=== PATIENT | female | born 1960 | race Caucasian/White ===

== ENCOUNTER 2019-11-18 10:28 | Outpatient (CLI) | payer MEDICARE, SELFPAY ==
[2019-11-18 10:39] LABS: Basophils Absolute Auto 0.09 K/mm3 (0.00-0.10); Basophils Percent Auto 1.2 % (0.0-1.0); Eosinophils Percent Auto 1.3 % (1.0-6.0); Hematocrit 49.9 % (35.0-49.0); Hemoglobin 16.9 g/dL (12.0-15.0); Immature Granulocyte Absolute 0.01 K/mm3 (0.00-0.00); Immature Granulocyte Percent A 0.1 % (0.0-0.0); Lymphocytes Percent Auto 21.4 % (18.0-42.0); Mean Corpuscular HGB Conc 33.9 g/dL (32.0-36.0); Mean Corpuscular Hemoglobin 33.1 pg (27.0-31.0); Mean Corpuscular Volume 97.7 fL (78.0-102.0); Mean Platelet Volume 9.6 fl (9.2-11.8); Monocytes Absolute Auto 0.52 K/mm3 (0.10-0.90); Neutrophils Absolute Auto 5.2 K/mm3 (1.7-7.2); Platelet Count Result 202 K/mm3 (150-420); Red Blood Count 5.11 M/mm3 (4.20-5.40); Red Cell Distribution Width 13.1 % (11.6-14.4); White Blood Count 7.5 K/mm3 (4.8-10.8)
[2019-11-18 10:42] LABS: Appearance Urine Clear (Clear); Bilirubin Urine Negative (Negative); Color Urine Yellow (Yellow); Glucose Urine UA Negative (Negative); Ketones Urine Negative (Negative); Leukocyte Esterase Ur Negative LEU/UL (Negative); Nitrate Urine Negative (Negative); Protein Urine Negative (Negative); Urobilinogen Urine 0.2 mg/dL (0.2-1.0); pH Urine 6.5 (5.0-8.0)
[2019-11-18 10:46] LABS: Add Urine Microscopic? YES; Blood Urine Trace-Intact (Negative); RBC Urine 0-2 /hpf (0-2); Squamous Epithelial Cell Urine Rare /hpf (Few); WBC Urine 0-3 /hpf (0-3)
[2019-11-18 10:47] LABS: Bacteria Urine None seen /hpf
[2019-11-18 11:32] LABS: Alanine Aminotransferase 29 U/L (14-59); Albumin Level 4.3 g/dL (3.4-5.0); Alkaline Phosphatase 41 U/L (46-116); Anion Gap 12.9 mmol/L (7-16); Aspartate Amino Transferase 19 U/L (15-37); Bilirubin,Total 0.4 mg/dL (0.00-1.00); Blood Urea Nitrogen 13 mg/dL (7-18); Calcium 9.3 mg/dL (8.5-10.1); Carbon Dioxide 32 mmol/L (21-32); Chloride 100 mmol/L (98-108); Cholesterol 241 mg/dL (0-200); Estimated Glomerular Filt Rate > 60; Glucose 84 mg/dL (70-99); HDL Direct 74 mg/dL (40-60); LDL Cholesterol Calculated 156 mg/dL (<130); Osmolality Calculated 289 mOsm/kg (285-295); Potassium 4.9 mmol/L (3.5-5.1); Sodium 140 mmol/L (136-145); Total Protein 7.6 g/dL (6.4-8.2); Triglycerides 55 mg/dL (0-150)
== END 2019-11-18 10:29 | disposition home or self-care (01) ==
PROVIDERS: PCP Internal Medicine; Visit Provider Internal Medicine
DX: E06.3 Autoimmune thyroiditis (principal); E78.5 Hyperlipidemia, unspecified; J44.9 Chronic obstructive pulmonary disease, unspecified; M85.80 Other specified disorders of bone density and structure, unspecified site
CPT/HCPCS: 36415; 80053; 80061; 81001; 84443; 85025

== ENCOUNTER 2020-02-18 09:40 | Outpatient (CLI) | payer MEDICARE, SELFPAY ==
--- NOTE | ~2020-02-18 | XR_ITS ---
XR chest 2V DATE: 02/18/2020 10:09 INDICATION: Shortness of breath. COPD. TECHNIQUE: 2 views COMPARISON: 03/04/2014 PA and lateral chest FINDINGS: The lungs are prominently hyperinflated with flattening of the diaphragm and increased retr osternal airspace, consistent with clinical history of COPD. The central pulmonary arteries are very prominent with rapid tapering, consistent with pulmonary hypertension. No pulmonary infiltrate or consolidation, pleural effusion or pulmonary vascular congestion or pneumo thorax is evident. Normal heart size. Mild aortic calcification. IMPRESSION: Prominent COPD Reviewed, dictated and finalized at location A. IMPRESSION: Prominent COPD
--- NOTE | ~2020-02-18 | CT_ITS ---
EXAMINATION: CTA chest PE protocol DATE: 02/18/2020 12:05 INDICATION: Shortness of breath, cough and elevated d-dimer. TECHNIQUE: Computed tomography (CT) pulmonary angiogram of the chest was performed with 100 mL Omnipa que-350 intravenous contrast. Additional 3D reconstructions utilizing coronal maximum intensity proje ction (MIP) were performed. Automated exposure control and iterative reconstruction technique were em ployed. The dose-length product was 146.04 mGy-cm. COMPARISON: None FINDINGS: Excellent contrast opacification of the pulmonary arteries. There is mild streak artifact from dense contrast in the superior vena cava and right atrium. No significant motion artifact yielding diagnost ic quality study which demonstrates no pulmonary embolism. Multiple small scattered centrilobular nod ules and mild tree-in-bud pattern in the anterobasilar right lower lobe consistent with endobronchial spread of disease most likely pneumonia. Mild lingular discoid atelectasis in the lingula and right middle lobe. No pleural effusion or pneumothorax. Heart size is normal. Thoracic aorta is normal in c aliber with no dissection. No pathologically enlarged thoracic lymphadenopathy. Visualized upper abdo men is unremarkable. Mild thoracic spondylosis. Chronic mild anterior wedging at T11 and T12. IMPRESSION: 1. No pulmonary embolism. 2. Right lower lobe pneumonia. Reviewed, dictated and finalized at location A.
[2020-02-18 09:56] LABS: HCO3 ABG 30.5 mmol/L (23-29); Oxygen Content ABG 18.8 %vol (16.0-22.0); Oxygen Saturation ABG 93.6 % (95-97); Oxyhemoglobin 86.5 % (94-100); PCO2 ABG 47.8 mmHg (35-45); PO2 ABG 62.7 mmHg (80-90); Total Hemoglobin 15.5 g/dL; pH ABG 7.42 (7.35-7.45)
[2020-02-18 09:58] LABS: Device ROOM AIR; Modified Allen's Test Pass; Site Drawn LEFT RADIAL
[2020-02-18 09:59] LABS: Basophils Absolute Auto 0.06 K/mm3 (0.00-0.10); Basophils Percent Auto 0.6 % (0.0-1.0); Eosinophils Absolute Auto 0.14 K/mm3 (0.02-0.50); Eosinophils Percent Auto 1.4 % (1.0-6.0); Hematocrit 47.8 % (35.0-49.0); Hemoglobin 15.5 g/dL (12.0-15.0); Immature Granulocyte Absolute 0.04 K/mm3 (0.00-0.00); Immature Granulocyte Percent A 0.4 % (0.0-0.0); Lymphocytes Absolute Auto 2.55 K/mm3 (1.10-4.50); Lymphocytes Percent Auto 25.7 % (18.0-42.0); Mean Corpuscular HGB Conc 32.4 g/dL (32.0-36.0); Mean Corpuscular Hemoglobin 32.6 pg (27.0-31.0); Mean Corpuscular Volume 100.4 fL (78.0-102.0); Mean Platelet Volume 9.2 fl (9.2-11.8); Monocytes Absolute Auto 0.86 K/mm3 (0.10-0.90); Monocytes Percent Auto 8.7 % (2.0-11.0); Neutrophils Absolute Auto 6.3 K/mm3 (1.7-7.2); Neutrophils Percent Auto 63.2 % (50.0-70.0); Platelet Count Result 324 K/mm3 (150-420); Red Blood Count 4.76 M/mm3 (4.20-5.40); Red Cell Distribution Width 13.2 % (11.6-14.4); White Blood Count 9.9 K/mm3 (4.8-10.8)
[2020-02-18 10:20] LABS: Alanine Aminotransferase 26 U/L (14-59); Albumin Level 3.5 g/dL (3.4-5.0); Alkaline Phosphatase 42 U/L (46-116); Anion Gap 8.9 mmol/L (7-16); Aspartate Amino Transferase 15 U/L (15-37); Bilirubin,Total 0.1 mg/dL (0.00-1.00); Blood Urea Nitrogen 13 mg/dL (7-18); Calcium 8.5 mg/dL (8.5-10.1); Carbon Dioxide 35 mmol/L (21-32); Chloride 99 mmol/L (98-108); Estimated Glomerular Filt Rate > 60; Glucose 80 mg/dL (70-99); Osmolality Calculated 287 mOsm/kg (285-295); Potassium 3.9 mmol/L (3.5-5.1); Sodium 139 mmol/L (136-145); Total Protein 6.9 g/dL (6.4-8.2)
[2020-02-18 10:23] LABS: D Dimer 3.07 mg/L (0.19-0.50)
[2020-02-18 10:24] LABS: BNP 44.1 pg/mL (0-100)
== END 2020-02-18 09:41 | disposition home or self-care (01) ==
PROVIDERS: PCP Internal Medicine; Visit Provider Internal Medicine
DX: R06.02 Shortness of breath (principal); R79.1 Abnormal coagulation profile
CPT/HCPCS: 36415; 36600; 71046; 71275; 80053; 82805; 83880; 85025; 85380; Q9965

== ENCOUNTER 2020-05-10 08:28 | Outpatient (CLI) | payer MEDICARE, SELFPAY ==
[2020-05-10 08:43] LABS: Base Excess ABG 1.8 mmol/L (0-2); HCO3 ABG 27.3 mmol/L (23-29); Oxygen Content ABG 19.3 %vol (16.0-22.0); Oxyhemoglobin 85.7 % (94-100); PO2 ABG 64.1 mmHg (80-90); pH ABG 7.39 (7.35-7.45)
[2020-05-10 08:45] VITALS: PULSE 61; O2SAT 94
[2020-05-10 08:45] LABS: Device ROOM AIR; Modified Allen's Test Pass; Site Drawn RIGHT RADIAL
--- NOTE | 2020-05-10 09:02 | HOMEO2EVAL ---
Home Oxygen Evaluation RC: Home Oxygen (O2) Evaluation Start: 05/10/20 08:55 Freq: Status: Active Protocol: RPE Activity Type Activity Date Activity User E-Sign Co-Sign Detail Recorded Client Recorded Date Recorded By Document 05/10/20 08:45 HIPOLITO [id number] 05/10/20 09:02 HIPOLITO 05/10/20 08:45 Home O2 Evaluation Test Phase Resting Oxygen Delivery Room Air Pulse Oximetry (90-100 %) 94 Pulse Rate (60-100 beats/min) 61 Activity Tolerance Good Rating of Perceived Dyspnea (PD) +2 Mild, Some Difficulty, Noticeable to the Observer Rate of Perceived Exertion (PE) 13 Somewhat Hard Ambulation Distance (feet) 950 Home Oxygen Evaluation Comments Pt walked approx 950 ft without assist on room air. Sp02s remained between 92-98%. Hr was between 61-94. Sanju walk fairly well but stated was tired the last minute and did have labored breathing with some light grunting respirations. Treatment Charges O2 Evaluation
--- NOTE | 2020-05-10 12:58 | WPDPFTINT ---
PFT Interpretation PFT Interpretation: DOS: 05/10/2020 REQUESTING: Dr. Soto REASON FOR TESTING: COPD PULMONARY FUNCTION TESTS Results are reproducible and reliable. Spirometry: FEV1 severely reduced 35% predicted. FVC 70% mildly reduced. Decreased FEV 1%. No change with bronchodilator. Lung volumes: TLC 137% mild hyperinflation. RV 252% severe air trapping. airway resistance increased 463%. Diffusion: DLCO is 43%, moderately reduced. Flow volume loop: Scooping of the expiratory limb IMPRESSION: Severe obstructive ventilatory impairment without response to bronchodilator, mild hyperinflation, severe air trapping, moderate decrease in diffusion. This pattern is consistent with emphysema. Lack of response to bronchodilators should not preclude use if clinically indicated. Sylvia Sultana MD
== END 2020-05-10 08:29 | disposition home or self-care (01) ==
LOC: CHSCARD 08:32
PROVIDERS: PCP Internal Medicine; Visit Provider Internal Medicine Pulmonary Disease
DX: J44.9 Chronic obstructive pulmonary disease, unspecified (principal)
CPT/HCPCS: 36600; 82805; 94060; 94618; 94726; 94729

== ENCOUNTER 2020-06-08 11:27 | Outpatient (CLI) | payer MEDICARE, SELFPAY ==
--- NOTE | ~2020-06-08 | XR_ITS ---
EXAMINATION: XR chest 2V 06/08/2020 11:59 INDICATION: Dyspnea. PROCEDURE: 2 view chest COMPARISON: Comparison to multiple prior studies sequentially, with oldest reviewed study dated 01/2014. FINDINGS: The lungs are clear. The lungs are hyperinflated which is consistent with, but not diagnost ic of chronic obstructive pulmonary disease. The cardiomediastinal silhouette is within normal limits . There are no pleural effusions. There is no pneumothorax suspected. IMPRESSION: 1: NO ACUTE CARDIOPULMONARY DISEASE. Reviewed, dictated and finalized at location A.
[2020-06-09 01:17] LABS: SARS-CoV-2 RNA PCR Negative
== END 2020-06-08 11:28 | disposition home or self-care (01) ==
LOC: CHSLAB 11:30
PROVIDERS: PCP Nurse Practitioner; Visit Provider Nurse Practitioner
DX: Z20.828 Contact with and (suspected) exposure to other viral communicable diseases (principal)
CPT/HCPCS: 71046; 87635; C9803; U0003

== ENCOUNTER 2020-10-06 10:37 | Outpatient (CLI) | payer MEDICARE, SELFPAY ==
--- NOTE | ~2020-10-06 | XR_ITS ---
XR chest 2V DATE: 10/06/2020 11:26 INDICATION: Cough and shortness breath for 2 weeks TECHNIQUE: 2 views COMPARISON: 06/08/2020 PA and lateral chest FINDINGS: There is severe bilateral pulmonary hyperinflation consistent with COPD. No pulmonary infiltrate or consolidation, pleural effusion or pulmonary vascular congestion or pneumo thorax is detected. Normal heart size. The central pulmonary arteries are prominent and taper rapidly, consistent with pulmonary hypertensio n. Aortic arch calcification. IMPRESSION: Severe bilateral pulmonary hyperinflation consistent with COPD; pulmonary hypertension Reviewed, dictated and finalized at location B. PSYCHIATRY IMPRESSION: Severe bilateral pulmonary hyperinflation consistent with COPD; pul monary hypertension
[2020-10-06 23:33] LABS: SARS-CoV-2 RNA PCR Negative
== END 2020-10-06 10:38 | disposition home or self-care (01) ==
LOC: CHSLAB 10:41
PROVIDERS: PCP Nurse Practitioner; Visit Provider Nurse Practitioner
DX: R05 Cough (principal); Z20.822 Contact with and (suspected) exposure to COVID-19
CPT/HCPCS: 71046; C9803; U0003

== ENCOUNTER 2020-11-22 10:20 | Outpatient (CLI) | payer MEDICARE, SELFPAY ==
--- NOTE | ~2020-11-22 | XR_ITS ---
XR chest 1V DATE: 11/22/2020 15:55 INDICATION: Shortness of breath, elevated d-dimer TECHNIQUE: PA chest COMPARISON: 10/06/2020 PA and lateral chest FINDINGS: There is severe bilateral pulmonary hyperinflation. No pulmonary infiltrate or consolidatio n, pleural effusion or pulmonary vascular congestion or pneumothorax. Normal heart size. Prominent central pulmonary arteries, consistent with pulmonary hypertension. IMPRESSION: COPD and pulmonary hypertension Reviewed, dictated and finalized at location A. ATOR PILOT
--- NOTE | ~2020-11-22 | CT_ITS ---
EXAMINATION:CT lung screening DATE: 11/22/2020 11:21 INDICATION: Personal history of tobacco dependence. Current smoker with 40 pack year history. TECHNIQUE: Computed tomography (CT) of the chest was performed without intravenous contrast. Automate d exposure control and iterative reconstruction technique were employed. The dose-length product (DLP ) was 61.85 mGy-cm. COMPARISON: Chest CT 02/18/2020 FINDINGS: There is severe emphysema. There is mild atelectasis bilaterally. No pleural effusion. The heart size is normal. No pericardial effusion. There is mild thoracic spondylosis. IMPRESSION: 1. Lung-RADS category 1: Negative. Continue annual screening with noncontrast low-dose chest CT in 12 months. Reviewed, dictated and finalized at location A. 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 Lung-RADS category 1: Negative. Continue annual screening with noncontrast l ow-dose chest CT in 12 months.
--- NOTE | ~2020-11-22 | NM_ITS ---
EXAMINATION: NM pulmonary perfusion DATE: 11/22/2020 15:58 INDICATION: Shortness of breath. TECHNIQUE: 5.2 mCi Tc-99m MAA was administered intravenously for perfusion images. Scintigraphic rosita ges of the chest were obtained. COMPARISON: Chest CT 11/22/2020, chest single view 11/22/2020 FINDINGS: Perfusion images show large defects in all lobes correlating with severe emphysema. IMPRESSION: 1. Pulmonary embolism absent (very low probability for pulmonary embolism). Reviewed, dictated and finalized at location A. 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
--- NOTE | 2020-11-22 11:25 | ECG_ITS ---
Measurements Intervals [place] Rate: 52 P: 85 NH: 142 QRS: 93 QRSD: 93 T: 81 QT: 411 QTc: 384 Interpretive Statements SINUS BRADYCARDIA LIMB LEAD REVERSAL INCOMPLETE RIGHT BUNDLE BRANCH BLOCK DELAYED PRECORDIAL R/S TRANSITION BORDERLINE ECG Electronically Signed On 11-22-2020 12:17:44 CLOSET ORGANIZER by Travon Newton D.O.
[2020-11-22 11:26] LABS: Basophils Absolute Auto 0.09 K/mm3 (0.00-0.10); Basophils Percent Auto 1.1 % (0.0-1.0); Eosinophils Absolute Auto 0.16 K/mm3 (0.02-0.50); Eosinophils Percent Auto 1.9 % (1.0-6.0); Hematocrit 41.6 % (35.0-49.0); Hemoglobin 13.8 g/dL (12.0-15.0); Immature Granulocyte Absolute 0.02 K/mm3 (0.00-0.00); Immature Granulocyte Percent A 0.2 % (0.0-0.0); Lymphocytes Absolute Auto 1.59 K/mm3 (1.10-4.50); Lymphocytes Percent Auto 18.6 % (18.0-42.0); Mean Corpuscular HGB Conc 33.2 g/dL (32.0-36.0); Mean Corpuscular Hemoglobin 32.6 pg (27.0-31.0); Mean Corpuscular Volume 98.3 fL (78.0-102.0); Mean Platelet Volume 9.5 fl (9.2-11.8); Monocytes Absolute Auto 0.48 K/mm3 (0.10-0.90); Monocytes Percent Auto 5.6 % (2.0-11.0); Neutrophils Absolute Auto 6.2 K/mm3 (1.7-7.2); Neutrophils Percent Auto 72.6 % (50.0-70.0); Platelet Count Result 223 K/mm3 (150-420); Red Blood Count 4.23 M/mm3 (4.20-5.40); Red Cell Distribution Width 12.8 % (11.6-14.4); White Blood Count 8.6 K/mm3 (4.8-10.8)
[2020-11-22 11:29] LABS: Appearance Urine Clear (Clear); Bilirubin Urine Negative (Negative); Color Urine Yellow (Yellow); Glucose Urine UA Negative (Negative); Ketones Urine Negative (Negative); Leukocyte Esterase Ur Negative LEU/UL (Negative); Nitrate Urine Negative (Negative); Protein Urine Negative (Negative); Specific Grav Ur 1.015 (1.010-1.020); Urobilinogen Urine 0.2 mg/dL (0.2-1.0)
[2020-11-22 11:37] LABS: Add Urine Microscopic? YES; Bacteria Urine None seen /hpf; Blood Urine Trace-Intact (Negative); RBC Urine 0-2 /hpf (0-2); Squamous Epithelial Cell Urine None seen /hpf (Few); WBC Urine 0-3 /hpf (0-3)
[2020-11-22 11:44] LABS: BNP 52.6 pg/mL (0-100)
[2020-11-22 11:52] LABS: Alanine Aminotransferase 28 U/L (14-59); Alkaline Phosphatase 40 U/L (46-116); Anion Gap 6 mmol/L (8-16); Aspartate Amino Transferase 13 U/L (15-37); Bilirubin,Total 0.3 mg/dL (0.00-1.00); Blood Urea Nitrogen 7 mg/dL (7-18); Calcium 9.1 mg/dL (8.5-10.1); Carbon Dioxide 33 mmol/L (21-32); Chloride 96 mmol/L (98-108); Creatine Kinase 108 U/L (26-192); Estimated Glomerular Filt Rate > 60; Glucose 90 mg/dL (70-99); Osmolality Calculated 278 mOsm/kg (285-295); Potassium 4.3 mmol/L (3.5-5.1); Sodium 135 mmol/L (136-145); Total Protein 7.1 g/dL (6.4-8.2)
[2020-11-22 12:03] LABS: Troponin I < 4.0 ng/L (0.00-60.4)
== END 2020-11-22 10:21 | disposition home or self-care (01) ==
PROVIDERS: PCP Internal Medicine; Visit Provider Nurse Practitioner
DX: Z12.2 Encounter for screening for malignant neoplasm of respiratory organs (principal); Z87.891 Personal history of nicotine dependence; R06.02 Shortness of breath; R79.1 Abnormal coagulation profile; R00.0 Tachycardia, unspecified; U07.1 COVID-19
CPT/HCPCS: 36415; 71045; 71271; 78580; 80053; 81001; 82550; 82553; 83880; 84484; 85025; 85380; 86769; 93005; A9540

== ENCOUNTER 2020-12-05 11:02 | Outpatient (CLI) | payer MEDICARE, SELFPAY | END 2020-12-05 11:03 | disposition home or self-care (01) | PROVIDERS: PCP Nurse Practitioner; Visit Provider Nurse Practitioner | DX: R05 Cough (principal) | CPT/HCPCS: 87015; 87070; 87102; 87116; 87205; 87206 ==

== ENCOUNTER 2021-03-31 09:11 | Outpatient (CLI) | payer MEDICARE, SELFPAY ==
[2021-03-31 09:27] LABS: Basophils Absolute Auto 0.07 K/mm3 (0.00-0.10); Basophils Percent Auto 0.7 % (0.0-1.0); Eosinophils Absolute Auto 0.18 K/mm3 (0.02-0.50); Eosinophils Percent Auto 1.9 % (1.0-6.0); Hematocrit 44.1 % (35.0-49.0); Hemoglobin 15.1 g/dL (12.0-15.0); Immature Granulocyte Absolute 0.02 K/mm3 (0.00-0.00); Immature Granulocyte Percent A 0.2 % (0.0-0.0); Lymphocytes Absolute Auto 2.09 K/mm3 (1.10-4.50); Lymphocytes Percent Auto 22.2 % (18.0-42.0); Mean Corpuscular HGB Conc 34.2 g/dL (32.0-36.0); Mean Corpuscular Hemoglobin 32.8 pg (27.0-31.0); Mean Corpuscular Volume 95.9 fL (78.0-102.0); Mean Platelet Volume 9.4 fl (9.2-11.8); Monocytes Absolute Auto 0.54 K/mm3 (0.10-0.90); Monocytes Percent Auto 5.7 % (2.0-11.0); Neutrophils Absolute Auto 6.5 K/mm3 (1.7-7.2); Neutrophils Percent Auto 69.3 % (50.0-70.0); Platelet Count Result 219 K/mm3 (150-420); Red Cell Distribution Width 12.5 % (11.6-14.4); White Blood Count 9.4 K/mm3 (4.8-10.8)
[2021-03-31 09:45] VITALS: PULSE 60; O2SAT 94
[2021-03-31 09:55] VITALS: PULSE 95; O2SAT 90
--- NOTE | 2021-03-31 10:21 | HOMEO2EVAL ---
Evaluation was performed at [facility] Home Oxygen Evaluation RC: Home Oxygen (O2) Evaluation Start: 03/31/21 10:14 Freq: Status: Active Protocol: RPE Activity Type Activity Date Activity User E-Sign Co-Sign Detail Recorded Client Recorded Date Recorded By Document 03/31/21 09:45 SJTyrone [id number] 03/31/21 10:21 SJB Document 03/31/21 09:55 SJB [id number] 03/31/21 10:21 SJB 03/31/21 03/31/21 09:45 09:55 Home O2 Evaluation Test Phase Resting Exercise Oxygen Delivery Room Air Room Air Pulse Oximetry (90-100 %) 94 90 Pulse Rate (60-100 beats/min) 60 95 Activity Tolerance Good Rating of Perceived Dyspnea (PD) +1 Mild, +2 Mild, Some Noticeable to Difficulty, the Participant Noticeable to but Not to an the Observer Observer Rate of Perceived Exertion (PE) 11 Fairly light 13 Somewhat Hard Ambulation Distance (feet) 800 Home Oxygen Evaluation Comments PT WALKED APPROX 800 FT ON ROOM AIR. SP02 STAYED BETWEEN 90% AND 96%. HR RANGED FROM 60 TO 95. TOLERATED EXERCISE FAIRLY WELL. PLB ENCOURAGED. GOOD EFFORT. Treatment Charges O2 Evaluation - Outpatient
[2021-03-31 12:51] LABS: Alanine Aminotransferase 28 U/L (14-59); Albumin Level 4.4 g/dL (3.4-5.0); Alkaline Phosphatase 43 U/L (46-116); Anion Gap 11 mmol/L (8-16); Aspartate Amino Transferase 14 U/L (15-37); Bilirubin,Total 0.5 mg/dL (0.00-1.00); Blood Urea Nitrogen 12 mg/dL (7-18); Calcium 9.4 mg/dL (8.5-10.1); Carbon Dioxide 29 mmol/L (21-32); Chloride 98 mmol/L (98-108); Cholesterol 222 mg/dL (0-200); Estimated Glomerular Filt Rate > 60; Glucose 79 mg/dL (70-99); HDL Direct 75 mg/dL (40-60); LDL Cholesterol Calculated 136 mg/dL (<130); Osmolality Calculated 284 mOsm/kg (285-295); Potassium 4.3 mmol/L (3.5-5.1); Sodium 138 mmol/L (136-145); Total Protein 7.3 g/dL (6.4-8.2); Triglycerides 56 mg/dL (0-150)
== END 2021-03-31 09:12 | disposition home or self-care (01) ==
PROVIDERS: PCP Internal Medicine; Visit Provider Nurse Practitioner
DX: J44.9 Chronic obstructive pulmonary disease, unspecified (principal); E06.3 Autoimmune thyroiditis; E78.5 Hyperlipidemia, unspecified; R06.00 Dyspnea, unspecified
CPT/HCPCS: 36415; 80053; 80061; 84443; 85025; 94618

== ENCOUNTER 2021-04-11 13:13 | Outpatient (CLI) | payer MEDICARE, SELFPAY ==
--- NOTE | ~2021-04-11 | MM_ITS ---
EXAMINATION: MM screening roney BI w joie HISTORY: Screening mammogram TECHNIQUE: Craniocaudal and mediolateral oblique 3-D tomosynthesis images were obtained and synthetic 2-D images were generated. CAD analysis was submitted and interpreted. COMPARISON: No prior mammogram is available for comparison at this institution. BREAST PARENCHYMAL COMPOSITION: The breasts are extremely dense, which lowers the sensitivity of mamm ography. FINDINGS: There is no evidence of suspicious mass, calcification, or architectural distortion to sugg est malignancy in either breast. There has been no suspicious interval change. IMPRESSION: 1. No mammographic evidence of malignancy. 2. Recommend routine screening mammography in one year. BI-RADS Category 1: Negative Reviewed, dictated and finalized at location B.
== END 2021-04-11 13:14 | disposition home or self-care (01) ==
LOC: CHSIMG 13:14
PROVIDERS: PCP Internal Medicine; Visit Provider Internal Medicine
DX: Z12.31 Encounter for screening mammogram for malignant neoplasm of breast (principal)
CPT/HCPCS: 77063; 77067

== ENCOUNTER 2021-07-10 11:22 | Outpatient (CLI) | payer MEDICARE, SELFPAY ==
[2021-07-10 12:09] LABS: Basophils Absolute Auto 0.08 K/mm3 (0.00-0.10); Basophils Percent Auto 1.4 % (0.0-1.0); Eosinophils Absolute Auto 0.13 K/mm3 (0.02-0.50); Eosinophils Percent Auto 2.2 % (1.0-6.0); Hemoglobin 13.7 g/dL (12.0-15.0); Immature Granulocyte Absolute 0.01 K/mm3 (0.00-0.00); Immature Granulocyte Percent A 0.2 % (0.0-0.0); Lymphocytes Absolute Auto 1.71 K/mm3 (1.10-4.50); Lymphocytes Percent Auto 29.6 % (18.0-42.0); Mean Corpuscular HGB Conc 33.4 g/dL (32.0-36.0); Mean Corpuscular Hemoglobin 32.8 pg (27.0-31.0); Mean Corpuscular Volume 98.1 fL (78.0-102.0); Mean Platelet Volume 10.4 fl (9.2-11.8); Monocytes Absolute Auto 0.46 K/mm3 (0.10-0.90); Neutrophils Absolute Auto 3.4 K/mm3 (1.7-7.2); Neutrophils Percent Auto 58.6 % (50.0-70.0); Platelet Count Result 233 K/mm3 (150-420); Red Blood Count 4.18 M/mm3 (4.20-5.40); White Blood Count 5.8 K/mm3 (4.8-10.8)
[2021-07-12 13:03] LABS: Immunoglobulin G, Serum 997 mg/dL (600-1540); Immunoglobulin G1 639 mg/dL (382-929); Immunoglobulin G2 150 mg/dL (241-700); Immunoglobulin G3 25 mg/dL (22-178); Immunoglobulin G4 19.3 mg/dL (4.0-86.0)
[2021-07-13 13:31] LABS: Alpha-1-Antitrypsin, QN 169 mg/dL (83-199)
[2021-07-13 16:20] LABS: Immunoglobulin E 10 kU/L (<=114)
[2021-07-14 16:53] LABS: Blastomyces Antibody Negative (Negative)
[2021-07-14 18:22] LABS: Legionella pneumophila Ag Ur Not Detected (Not Detected)
[2021-07-20 07:58] LABS: NIL 0.02 IU/mL
[2021-07-20 08:00] LABS: Quantiferon TB Plus, 1T NEGATIVE
== END 2021-07-10 11:23 | disposition home or self-care (01) ==
LOC: CHSLAB 11:24
PROVIDERS: PCP Internal Medicine; Visit Provider Nurse Practitioner
DX: R05.9 Cough, unspecified (principal); R06.09 Other forms of dyspnea; J30.9 Allergic rhinitis, unspecified
CPT/HCPCS: 36415; 82103; 82104; 82784; 82785; 82787; 85025; 86003; 86331; 86480; 86606; 86609; 86612; 86698; 87449

== ENCOUNTER 2021-08-23 10:36 | Outpatient (CLI) | payer MEDICARE, SELFPAY ==
--- NOTE | ~2021-08-23 | CT_ITS ---
EXAMINATION: CT sinus wo con DATE: 08/23/2021 10:57 INDICATION: Chronic sinusitis TECHNIQUE: Computed tomography (CT) of the paranasal sinuses was performed without intravenous contra st. The dose-length product was 263.70 mGy-cm. Automated exposure control and iterative reconstructio n technique were employed. COMPARISON: None FINDINGS: There is no significant mucosal thickening, air-fluid level or mucoperiosteal reaction. Lef tward nasal septal deviation. Ostiomeatal units are patent. Mastoids are pneumatized. IMPRESSION: 1. No significant sinus disease. Reviewed, dictated and finalized at location A. UIT RIDER
[2021-08-23 11:51] LABS: Alanine Aminotransferase 29 U/L (14-59); Albumin Level 4.2 g/dL (3.4-5.0); Alkaline Phosphatase 44 U/L (46-116); Aspartate Amino Transferase 15 U/L (15-37); Bilirubin Direct 0.1 mg/dL (0-0.2); Bilirubin,Total 0.2 mg/dL (0.00-1.00); Total Protein 7.1 g/dL (6.4-8.2)
== END 2021-08-23 10:37 | disposition home or self-care (01) ==
PROVIDERS: PCP Internal Medicine; Visit Provider Nurse Practitioner
DX: Z79.899 Other long term (current) drug therapy (principal); R05.3 Chronic cough; R06.09 Other forms of dyspnea; J32.9 Chronic sinusitis, unspecified
CPT/HCPCS: 36415; 70486; 80076

== ENCOUNTER 2021-09-18 13:47 | Outpatient (CLI) | payer MEDICARE, SELFPAY ==
[2021-09-18 15:04] LABS: Influenza A QL RT-PCR Negative (Negative); Influenza B QL RT-PCR Negative (Negative); SARS-CoV-2 RNA PCR Negative (Negative)
== END 2021-09-18 13:48 | disposition home or self-care (01) ==
LOC: CHSLAB 13:51
PROVIDERS: PCP Internal Medicine; Visit Provider Internal Medicine
DX: J06.9 Acute upper respiratory infection, unspecified (principal); Z20.822 Contact with and (suspected) exposure to COVID-19
CPT/HCPCS: 36415; 87502; C9803; U0003; U0005

== ENCOUNTER 2021-09-19 10:30 | Outpatient (CLI) | payer MEDICARE, SELFPAY ==
--- NOTE | ~2021-09-19 | XR_ITS ---
XR chest 2V DATE: 09/19/2021 10:53 INDICATION: Cough, dyspnea intermittently for one year. History of COPD. Smoker. TECHNIQUE: 2 views COMPARISON: November 22, 2020 PA chest FINDINGS: There is severe bilateral hyperinflation with flattening the diaphragm, increased retroster nal airspace, consistent with COPD. No pulmonary infiltrate or consolidation, pleural effusion or pulmonary vascular congestion or pneumo thorax is detected. The central pulmonary arteries are prominent and taper rather rapidly, consistent with pulmonary hype rtension. Heart size. No hilar or mediastinal enlargement. There is aortic arch calcification. Included skeletal structures are unremarkable. IMPRESSION: COPD, pulmonary hypertension Reviewed, dictated and finalized at location B. 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
[2021-09-19 11:02] LABS: Appearance Urine Clear (Clear); Bilirubin Urine Negative (Negative); Color Urine Light Yellow (Yellow); Glucose Urine UA Negative (Negative); Ketones Urine Negative (Negative); Leukocyte Esterase Ur Negative (Negative); Nitrate Urine Negative (Negative); Protein Urine Negative (Negative); Specific Grav Ur <= 1.005 (1.010-1.020); Urobilinogen Urine 0.2 mg/dL (0.2-1.0)
[2021-09-19 11:07] LABS: Add Urine Microscopic? YES; Blood Urine Trace-Intact (Negative); RBC Urine None seen /hpf (0-2); Squamous Epithelial Cell Urine Rare /hpf (Few); WBC Urine None seen /hpf (0-3)
[2021-09-19 11:08] LABS: Bacteria Urine None seen /hpf
== END 2021-09-19 10:31 | disposition home or self-care (01) ==
LOC: CHSLAB 10:32
PROVIDERS: PCP Internal Medicine; Visit Provider Nurse Practitioner Family
DX: J18.9 Pneumonia, unspecified organism (principal); R05.9 Cough, unspecified; R06.00 Dyspnea, unspecified; N39.0 Urinary tract infection, site not specified
CPT/HCPCS: 71046; 81001; 87086

== ENCOUNTER 2021-09-25 13:34 | Emergency (ER) | payer MEDICARE, SELFPAY ==
--- NOTE | ~2021-09-25 | XR_ITS ---
EXAMINATION: [id number] EXAM DATE: 09/25/2021 14:25 INDICATION: No known recent injury provided at this time. Pain of the left ribs. TECHNIQUE: Frontal projection of the upper left ribs, frontal projection of the lower left ribs, obli que projection of the left ribs, frontal chest x-ray(s) for interpretation. Comparison is made to [place] or examination from 09/19/2021. FINDINGS: There are no displaced acute left rib fractures identified. There is no soft tissue abnor mality seen. The lungs are hyperinflated which can be seen with chronic obstructive pulmonary disease (a clinical diagnosis of functional impairment), but is not diagnostic of it. No confluent consolid ation, pneumothorax or pleural effusion suspected. Cardiomediastinal silhouette is normal. IMPRESSION: Hyperinflation. No acute findings. Reviewed, dictated and finalized at location B. R MARINE
[2021-09-25 13:54] VITALS: BP 144/96; PULSE 76; RESP 18; TEMP 36.6; O2SAT 99
--- NOTE | 2021-09-25 13:59 | ED.GENADULT ---
HPI - General Adult General Chief complaint: Shortness of Breath/Dyspnea Stated complaint: SOB/stabing pains in ribs Source: patient Mode of arrival: ambulatory Limitations: no limitations History of Present Illness HPI narrative: Flora is a 61F with a PMH of COPD that presented to the ER with pain in her left ribs that started 2 days ago. She started treatment for a COPD exacerbation 7 days ago. She was coughing very hard at his time. However, despite no trauma she started to have pain in her posterior/lateral left ribs (She told the nurse her back but for me she just points to her ribs and nothing midline). Her breathing is much better than it was. She denies CP, N/V, syncope, and lightheadedness. Related Data Home Medications Medication Instructions Recorded Confirmed albuterol sulfate INHALATION 09/25/21 Allergies Allergy/AdvReac Type Severity Reaction Status Date / Time Penicillins Allergy Intermediate RASH/ HIVES Verified 09/25/21 13:58 Review of Systems Constitutional: Constitutional: Reports no additional constitutional complaints Eyes: Eyes: Reports no additional eye complaints ENT: Reports system reviewed and no additional complaints, except as documented Cardiovascular: Cardiovascular: Reports no additional cardiovascular complaints Respiratory: Respiratory: Reports as per HPI Gastrointestinal: Gastrointestinal: Reports no additional gastrointestinal complaints Genitourinary: Comments: No dysuria or hematuria Musculoskeletal: Musculoskeletal: Reports no additional musculoskeletal complaints Integumentary/Breasts: Skin/Breast: Reports system reviewed and no additional complaints, except as docu Neurologic: Reports system reviewed and no additional complaints, except as documented Psychiatric: Psychiatric: Reports no additional psychiatric complaints Endocrine: Endocrine: Reports no additional endocrine complaints Hematologic/Lymphatic: Hematologic/Lymphatic: Reports no additional hematologic/lymphatic complaints Allergic/Immunologic: Allergic/Immunologic: Reports no additional allergic/immunologic complaints Exam Const: General: no acute distress and alert Orientation/consciousness: patient oriented x3 Limitations: No altered mental status HENMT: Head: normal to inspection Other: normocephalic, atraumatic Eyes: Conjunctivae: conjunctivae normal Pupils: Equal, round and reactive pupils present Neck: Neck: normal visual inspection Chest: Chest palpation & inspection: normal inspection of the chest Resp: Effort & Inspection: normal respiratory effort Auscultation: clear to auscultation bilaterally Other: Ribs are TTP on the left in the posterior, lateral and anterior sides Cardio: Rate: regular rate Rhythm: regular rhythm GI: Inspection: non-distended GI Palp: Yes Soft to palpation, No Tenderness to palpation present (GI) and No Guarding due to palpation present (GI) Urinary Catheter: Urinary Catheter: patent and draining Skin: General skin exam: normal color Rashes: no rashes Neuro: General: patient oriented x3 and moves all extremities Extrem: General: normal to inspection Psych: Appearance: grossly normal Mental Status: mental status grossly normal Thought content: Yes Normal thought content present Course Course Emergency Course: Declined pain meds. ordered radiographs and UA EXAMINATION: [id number] EXAM DATE: 09/25/2021 14:25 INDICATION: No known recent injury provided at this time. Pain of the left ribs. TECHNIQUE: Frontal projection of the upper left ribs, frontal projection of the lower left ribs, oblique projection of the left ribs, frontal chest x-ray(s) for interpretation. Comparison is made to prior examination from 09/19/2021. FINDINGS: There are no displaced acute left rib fractures identified. There is no soft tissue abnormality seen. The lungs are hyperinflated which can be seen with chronic obstructive pulmonary disease (a clinical diagnosis of funct
[2021-09-25 14:17] LABS: Appearance Urine Clear (Clear); Bilirubin Urine Negative (Negative); Color Urine Light Yellow (Yellow); Glucose Urine UA Negative (Negative); Ketones Urine Negative (Negative); Leukocyte Esterase Ur Negative (Negative); Nitrate Urine Negative (Negative); Protein Urine Negative (Negative); Specific Grav Ur <= 1.005 (1.010-1.020); Urobilinogen Urine 0.2 mg/dL (0.2-1.0)
[2021-09-25 14:23] LABS: Add Urine Microscopic? YES; Blood Urine Trace-Intact (Negative)
[2021-09-25 14:27] LABS: Bacteria Urine None seen /hpf; RBC Urine 0-2 /hpf (0-2); Squamous Epithelial Cell Urine Rare /hpf (Few); WBC Urine 0-3 /hpf (0-3)
[2021-09-25 14:59] VITALS: BP 120/76; PULSE 67; RESP 20; TEMP 36.7; O2SAT 100
== END 2021-09-25 15:01 | disposition home or self-care (01) ==
PROVIDERS: Emergency Provider Family Medicine; PCP Internal Medicine
DX: R07.81 Pleurodynia (principal)
CPT/HCPCS: 71101; 81001; 99283

== ENCOUNTER 2022-01-09 12:58 | Outpatient (CLI) | payer MEDICARE, SELFPAY ==
--- NOTE | ~2022-01-09 | CT_ITS ---
EXAMINATION:CT lung screening DATE: 01/09/2022 13:25 INDICATION: Personal history of nicotine dependence. Current smoker with 44 pack year history. TECHNIQUE: Computed tomography (CT) of the chest was performed without intravenous contrast. Automate d exposure control and iterative reconstruction technique were employed. The dose-length product (DLP ) was 62.71 mGy-cm. COMPARISON: Chest CT 11/22/2020 FINDINGS: There is severe emphysema. There is mild atelectasis bilaterally. No pleural effusion. The heart size is normal. No pericardial effusion. There is an old left rib fracture. There is mild thora cic spondylosis. IMPRESSION: 1. Lung-RADS category 1: Negative. Continue annual screening with noncontrast low-dose chest CT in 12 months. Reviewed, dictated and finalized at location A. IMPRESSION: 1. Lung-RADS category 1: Negative. Continue annual screening with noncontrast l ow-dose chest CT in 12 months.
[2022-01-09 13:31] LABS: Alanine Aminotransferase 13 U/L (14-59); Alkaline Phosphatase 46 U/L (46-116); Aspartate Amino Transferase 16 U/L (15-37); Bilirubin Direct 0.1 mg/dL (0-0.2); Bilirubin,Total 0.2 mg/dL (0.00-1.00); Total Protein 7.1 g/dL (6.4-8.2)
== END 2022-01-09 12:59 | disposition home or self-care (01) ==
PROVIDERS: PCP Internal Medicine; Visit Provider Nurse Practitioner
DX: J44.9 Chronic obstructive pulmonary disease, unspecified (principal); Z87.891 Personal history of nicotine dependence
CPT/HCPCS: 36415; 71271; 80076

== ENCOUNTER 2022-08-01 11:22 | Outpatient (CLI) | payer MEDICARE, SELFPAY ==
[2022-08-01 11:57] LABS: Basophils Absolute Auto 0.04 K/mm3 (0.00-0.10); Basophils Percent Auto 0.8 % (0.0-1.0); Eosinophils Percent Auto 2.1 % (1.0-6.0); Hematocrit 37.1 % (35.0-49.0); Hemoglobin 12.6 g/dL (12.0-15.0); Immature Granulocyte Absolute 0.01 K/mm3 (0.00-0.00); Immature Granulocyte Percent A 0.2 % (0.0-0.0); Lymphocytes Absolute Auto 1.15 K/mm3 (1.10-4.50); Lymphocytes Percent Auto 23.7 % (18.0-42.0); Mean Corpuscular Hemoglobin 33.2 pg (27.0-31.0); Mean Corpuscular Volume 97.9 fL (78.0-102.0); Mean Platelet Volume 10.3 fl (9.2-11.8); Monocytes Absolute Auto 0.42 K/mm3 (0.10-0.90); Monocytes Percent Auto 8.6 % (2.0-11.0); Neutrophils Absolute Auto 3.1 K/mm3 (1.7-7.2); Neutrophils Percent Auto 64.6 % (50.0-70.0); Platelet Count Result 181 K/mm3 (150-420); Red Blood Count 3.79 M/mm3 (4.20-5.40); Red Cell Distribution Width 12.9 % (11.6-14.4); White Blood Count 4.9 K/mm3 (4.8-10.8)
[2022-08-01 12:21] LABS: Alanine Aminotransferase 23 U/L (14-59); Albumin Level 3.9 g/dL (3.4-5.0); Alkaline Phosphatase 38 U/L (46-116); Anion Gap 4 mmol/L (8-16); Aspartate Amino Transferase 12 U/L (15-37); Bilirubin,Total 0.2 mg/dL (0.00-1.00); Blood Urea Nitrogen 12 mg/dL (7-18); Calcium 8.6 mg/dL (8.5-10.1); Carbon Dioxide 32 mmol/L (21-32); Chloride 102 mmol/L (98-108); Estimated Glomerular Filt Rate > 60; Glucose 97 mg/dL (70-99); Osmolality Calculated 285 mOsm/kg (285-295); Potassium 4.1 mmol/L (3.5-5.1); Sodium 138 mmol/L (136-145); Total Protein 7.1 g/dL (6.4-8.2)
[2022-08-01 12:22] LABS: CRP < 0.5 mg/dL (0.0-0.9)
[2022-08-01 13:10] LABS: Erythrocyte Sedimentation Rate 10 mm/hr (0-20)
== END 2022-08-01 11:23 | disposition home or self-care (01) ==
LOC: CHSLAB 11:25
PROVIDERS: PCP Internal Medicine; Visit Provider Specialist
DX: L29.9 Pruritus, unspecified (principal)
CPT/HCPCS: 36415; 80053; 84443; 85025; 85652; 86140

== ENCOUNTER 2022-08-31 10:30 | Outpatient (CLI) | payer MEDICARE, SELFPAY ==
[2022-08-31 11:24] LABS: Alanine Aminotransferase 32 U/L (14-59); Alkaline Phosphatase 38 U/L (46-116); Aspartate Amino Transferase 18 U/L (15-37); Bilirubin Direct 0.1 mg/dL (0-0.2); Bilirubin,Total 0.3 mg/dL (0.00-1.00); Total Protein 6.9 g/dL (6.4-8.2)
== END 2022-08-31 10:31 | disposition home or self-care (01) ==
PROVIDERS: PCP Internal Medicine; Visit Provider Nurse Practitioner
DX: Z79.899 Other long term (current) drug therapy (principal)
CPT/HCPCS: 36415; 80076

== ENCOUNTER 2023-01-10 10:11 | Outpatient (CLI) | payer MEDICARE, SELFPAY ==
--- NOTE | ~2023-01-10 | CT_ITS ---
CT Scan of the Chest without Contrast: Clinical Indication: Lung cancer screening, smoking history Technique: Contiguous sections were acquired throughout the chest without intravenous contrast. Dose reduction technique was used on this scan by utilizing automated exposure control and iterative recon struction technique. The dose-length product (DLP) was 58.87 mGy-cm. COMPARISON: 01/09/2022, 11/22/2020 Findings: There is no evidence of any significant mediastinal, hilar or axillary lymphadenopathy. There are mil d atherosclerotic calcifications of the aorta. There is no evidence of pleural or pericardial effusion. There is mild to moderate emphysema. Areas of linear scarring are present bilaterally. No pulmonary n odule evident. Images through the upper abdomen reveal no abnormalities. Impression: Lung-RADS 1: Negative. 12 month follow-up screening CT advised. Mild to moderate emphysema with areas of linear scarring. Reviewed, dictated and finalized at [facility]. Impression: Lung-RADS 1: Negative. 12 month follow-up screening CT advised. Mild to moderate emphysema with areas of linear scarring.
== END 2023-01-10 10:12 | disposition home or self-care (01) ==
LOC: CHSIMG 10:14
PROVIDERS: PCP Internal Medicine; Visit Provider Nurse Practitioner
DX: Z12.2 Encounter for screening for malignant neoplasm of respiratory organs (principal); Z87.891 Personal history of nicotine dependence; J43.9 Emphysema, unspecified
CPT/HCPCS: 71271

== ENCOUNTER 2023-09-08 16:09 | Emergency (ER) | payer MEDICARE, SELFPAY ==
--- NOTE | ~2023-09-08 | XR_ITS ---
EXAM: XR toe 5th LT min 2V DATE: 09/08/2023 17:03 HISTORY: 5th digit pain/discoloration, stubbing injury few weeks ago . COMPARISON: None available. FINDINGS: Normal mineralization. No fracture or dislocation. No lytic or blastic lesion. Joint space s are maintained. No erosion or periosteal change. Soft tissues within normal limits. IMPRESSION: No acute osseous finding in the left fifth toe. Reviewed, dictated and finalized at location K. TER MACHINE
[2023-09-08 16:15] VITALS: BP 100/81; PULSE 71; RESP 20; TEMP 36.3; O2SAT 99
--- NOTE | 2023-09-08 16:26 | ED.LOWEXIN ---
HPI - Extremity Injury (Lower) General Chief Complaint: Extremity Injury, Lower Stated Complaint: SORE LEFT PINKY TOE Time Seen by Provider: 09/08/23 16:12 Source: patient Mode of arrival: ambulatory History of Present Illness HPI Narrative: Patient is a 63 year old female with a significant PMH that presents today with left LE injury. Patient's left 5th toe is discolored/erythematous. She does admit to hitting her toe a few weeks ago on something. She also states she thinks that she has circulation problems in her LEs. No hx of DVT or blood clots. MD complaint: foot injury Onset (ago): week(s) Injury: Left: foot (5th digit ) Type of Injury: blunt Place: home Severity: moderate Severity scale (1-10): 4 Relieving factors: nothing Exacerbating factors: nothing Context: direct blow Associated symptoms: swelling Other symptoms: none Treatments prior to arrival: NSAIDS Related Data Home Medications Medication Instructions Recorded Confirmed albuterol sulfate 90 mcg/actuation 2 inh inhalation Q4H PRN Shortness 09/25/21 09/08/23 aerosol inhaler Of Breath azithromycin 500 mg tablet 500 mg PO 3XW 01/17/22 09/08/23 levothyroxine 75 mcg capsule 75 mcg PO DAILY 01/17/22 09/08/23 melatonin 10 mg capsule 10 mg PO QHS 01/17/22 09/08/23 budesonide 160 mcg-glycopyr 9 1 inh inhalation BID 09/08/23 09/08/23 mcg-formot 4.8 mcg/actuation HFA inhaler (Breztri Aerosphere) prednisone 10 mg tablet 10 mg PO DAILY 09/08/23 09/08/23 Allergies Allergy/AdvReac Type Severity Reaction Status Date / Time Penicillins Allergy Intermediate RASH/ HIVES Verified 09/08/23 16:21 Review of Systems Review of Systems: All systems reviewed & are unremarkable except as noted in HPI and below Constitutional: Constitutional: Reports as per HPI Eyes: Eyes: Reports no additional eye complaints ENT: Reports system reviewed and no additional complaints, except as documented Cardiovascular: Cardiovascular: Reports no additional cardiovascular complaints Respiratory: Respiratory: Reports no additional respiratory complaints Gastrointestinal: Gastrointestinal: Reports no additional gastrointestinal complaints Genitourinary: Genitourinary: Reports no additional female genitourinary complaints Musculoskeletal: Musculoskeletal: Reports as per HPI and Reports arthralgias (5th metatarsal ) Integumentary/Breasts: Skin/Breast: Reports system reviewed and no additional complaints, except as docu Neurologic: Reports system reviewed and no additional complaints, except as documented Psychiatric: Psychiatric: Reports no additional psychiatric complaints Endocrine: Endocrine: Reports no additional endocrine complaints [facility] Past Medical History Medical History Anxiety Arthritis COPD (chronic obstructive pulmonary disease) Headache Thyroid disorder Family History Family History (Updated 01/17/22 @ 10:33 by Shawna Turk MA) Father Throat cancer Heart disease Thyroid disorder Social History Social History Smoking status: Current every day smoker Alcohol intake: never Substance use: never Exam Const: General: healthy appearing Nutritional Appearance: well nourished Orientation/consciousness: patient oriented x3 HENMT: Head: normal to inspection Ears: external ears normal Face/Nose/Sinus: Normal external nose present Face and sinus: normal facial exam Mouth: Yes Normal oral and palatal mucosa present Teeth and gingiva: dentition normal Throat: posterior oropharynx normal Eyes: Conjunctivae: conjunctivae normal Pupils: Equal, round and reactive pupils present EOM: EOMs intact bilaterally Neck: Neck: normal visual inspection Chest: Chest palpation & inspection: normal inspection of the chest Resp: Effort & Inspection: normal respiratory effort Cardio: Rate: regular rate Rhythm: regular rhythm GI: GI Palp: Ye
[2023-09-08] MEDS: KETOROLAC (*BKC) 60 MG/2 ML VIAL IM (16:49)
[2023-09-08 18:20] VITALS: BP 99/73; PULSE 74; RESP 20; TEMP 36.7; O2SAT 96
== END 2023-09-08 18:22 | disposition home or self-care (01) ==
PROVIDERS: Emergency Provider Family Medicine
DX: S90.122A Contusion of left lesser toe(s) without damage to nail, initial encounter (principal); J44.9 Chronic obstructive pulmonary disease, unspecified; F17.200 Nicotine dependence, unspecified, uncomplicated; Z79.899 Other long term (current) drug therapy; W22.8XXA Striking against or struck by other objects, initial encounter; Y92.009 Unspecified place in unspecified non-institutional (private) residence as the place of occurrence of the external cause
CPT/HCPCS: 73660; 96372; 99283; J1885

== ENCOUNTER 2023-09-11 13:36 | Outpatient (CLI) | payer MEDICARE, SELFPAY ==
--- NOTE | ~2023-09-11 | XR_ITS ---
EXAM: XR foot LT min 3V DATE: 09/11/2023 14:13 HISTORY: LATERAL FOOT AND 5HT DIGIT PAIN/NO TRAUMA . COMPARISON: X-ray fifth toe 09/08/2023. FINDINGS: Normal mineralization. No fracture or dislocation. No lytic or blastic lesion. Moderate das llux valgus and mild degenerative change at the first MTP joint. Mild plantar and Achilles enthesopat hy. No erosion or periosteal change. Soft tissues within normal limits. IMPRESSION: Moderate hallux valgus. Mild first MTP joint osteoarthritis. Reviewed, dictated and finalized at location K. 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
[2023-09-11 13:49] LABS: Basophils Absolute Auto 0.08 K/mm3 (0.00-0.10); Basophils Percent Auto 0.9 % (0.0-1.0); Eosinophils Percent Auto 1.2 % (1.0-6.0); Hematocrit 38.8 % (35.0-49.0); Hemoglobin 12.6 g/dL (12.0-15.0); Immature Granulocyte Absolute 0.03 K/mm3 (0.00-0.00); Immature Granulocyte Percent A 0.3 % (0.0-0.0); Lymphocytes Absolute Auto 1.79 K/mm3 (1.10-4.50); Lymphocytes Percent Auto 20.7 % (18.0-42.0); Mean Corpuscular HGB Conc 32.5 g/dL (32.0-36.0); Mean Corpuscular Hemoglobin 32.6 pg (27.0-31.0); Mean Corpuscular Volume 100.5 fL (78.0-102.0); Mean Platelet Volume 9.2 fl (9.2-11.8); Monocytes Absolute Auto 0.75 K/mm3 (0.10-0.90); Monocytes Percent Auto 8.7 % (2.0-11.0); Neutrophils Absolute Auto 5.9 K/mm3 (1.7-7.2); Neutrophils Percent Auto 68.2 % (50.0-70.0); Platelet Count Result 216 K/mm3 (150-420); Red Blood Count 3.86 M/mm3 (4.20-5.40); Red Cell Distribution Width 12.7 % (11.6-14.4); White Blood Count 8.7 K/mm3 (4.8-10.8)
[2023-09-11 14:16] LABS: Alanine Aminotransferase 38 U/L (14-59); Albumin Level 3.8 g/dL (3.4-5.0); Alkaline Phosphatase 26 U/L (46-116); Anion Gap -2 mmol/L (8-16); Aspartate Amino Transferase 20 U/L (15-37); Bilirubin,Total 0.3 mg/dL (0.00-1.00); Blood Urea Nitrogen 8 mg/dL (7-18); Carbon Dioxide 40 mmol/L (21-32); Chloride 95 mmol/L (98-108); Estimated Glomerular Filt Rate > 60; Glucose 80 mg/dL (70-99); Osmolality Calculated 273 mOsm/kg (285-295); Potassium 3.6 mmol/L (3.5-5.1); Sodium 133 mmol/L (136-145); Total Protein 6.5 g/dL (6.4-8.2); Uric Acid 3.9 mg/dL (2.6-6.0)
[2023-09-11 14:22] LABS: CRP < 0.5 mg/dL (0.0-0.9)
== END 2023-09-11 13:37 | disposition home or self-care (01) ==
LOC: CHSLAB 13:39
PROVIDERS: PCP Internal Medicine; Visit Provider Internal Medicine
DX: M79.672 Pain in left foot (principal); M20.12 Hallux valgus (acquired), left foot; M19.072 Primary osteoarthritis, left ankle and foot
CPT/HCPCS: 36415; 73630; 80053; 84550; 85025; 86140

== ENCOUNTER 2024-01-13 11:47 | Outpatient (CLI) | payer MEDICARE, SELFPAY ==
--- NOTE | ~2024-01-13 | CT_ITS ---
CT Scan of the Chest without Contrast: Clinical Indication: Lung cancer screening, nicotine dependence Technique: Contiguous sections were acquired throughout the chest without intravenous contrast. Dose reduction technique was used on this scan by utilizing automated exposure control and iterative recon struction technique. The dose-length product (DLP) was 56.31 mGy-cm. Findings: There is no evidence of any significant mediastinal, hilar or axillary lymphadenopathy. The mediastin al soft tissues appear normal. There is no evidence of pleural or pericardial effusion. There is linear scarring anteromedial upper lobes bilaterally. No pulmonary nodule evident. Moderate emphysema present. Images through the upper abdomen reveal no abnormalities. Impression: Lung RADS 1: Negative. 12 month follow-up screening CT advised. Moderate emphysema. Reviewed, dictated and finalized at [facility]. Impression: Lung RADS 1: Negative. 12 month follow-up screening CT advised. Moderate emphysema.
--- NOTE | ~2024-01-13 | MM_ITS ---
EXAMINATION: MM screening roney BI w joie HISTORY: Screening TECHNIQUE: Craniocaudal and mediolateral oblique 3-D tomosynthesis images were obtained and synthetic 2-D images were generated. CAD analysis was submitted and interpreted. COMPARISON: 04/11/2021 BREAST PARENCHYMAL COMPOSITION: Dense: The breasts are extremely dense, which lowers the sensitivity of mammography. FINDINGS: There is no evidence of suspicious mass, calcification, or architectural distortion to sugg est malignancy in either breast. There has been no suspicious interval change. IMPRESSION: 1. No mammographic evidence of malignancy. 2. Recommend routine screening mammography in one year. BI-RADS Category 1: Negative Reviewed, dictated and finalized at location B.
== END 2024-01-13 11:48 | disposition home or self-care (01) ==
PROVIDERS: PCP Internal Medicine; Visit Provider Internal Medicine
DX: Z12.31 Encounter for screening mammogram for malignant neoplasm of breast (principal); Z87.891 Personal history of nicotine dependence; Z12.2 Encounter for screening for malignant neoplasm of respiratory organs; J43.9 Emphysema, unspecified
CPT/HCPCS: 71271; 77063; 77067

== ENCOUNTER 2024-03-04 14:49 | Emergency (ER) | payer MEDICARE, SELFPAY ==
[2024-03-04] VITALS (12 sets, daily range): BP systolic 105–133; BP diastolic 75–91; PULSE 61–75; RESP 20–22; TEMP 36.4–36.8; O2SAT 98–100
--- NOTE | ~2024-03-04 | XR_ITS ---
EXAMINATION: XR chest 2V DATE: 03/04/2024 16:08 INDICATION: Left upper chest pain. Shortness of breath. TECHNIQUE: Frontal and lateral views of the chest were obtained. COMPARISON: Chest 2 views 09/19/2021, chest CT 01/13/2024 FINDINGS: The lungs are hyperexpanded, consistent with emphysema. No pleural effusion or pneumothorax . The heart size is normal. IMPRESSION: 1. Emphysema. Reviewed, dictated and finalized at location A. IMPRESSION: 1. Emphysema.
[2024-03-04] MEDS: IPRATROPIUM 0.5 MG/ALBUTEROL SULFATE 2.5 MG AMPUL.NEB 3 ML 12 ML INHALATION (15:09)
[2024-03-04 15:11] LABS: Base Excess ABG 4.3 mmol/L (0-2); HCO3 ABG 28.9 mmol/L (23-29); Oxygen Content ABG 17.8 %vol (16.0-22.0); PCO2 ABG 43.5 mmHg (35-45); Total Hemoglobin 13.4 g/dL (12.0-18.0); pH ABG 7.44 (7.35-7.45)
[2024-03-04] MEDS: SODIUM CHLORIDE 0.9% IV 1,000 ML 999 ML IV CONT (15:11)
[2024-03-04] MEDS: MAGNESIUM SULF 2 GM/WATER 50ML 2 GM/50 ML BAG IVPB (15:12)
[2024-03-04 15:13] LABS: Device NASAL CANNULA; Modified Allen's Test Pass; Site Drawn LEFT RADIAL
[2024-03-04 15:16] LABS: Basophils Absolute Auto 0.07 K/mm3 (0.00-0.10); Basophils Percent Auto 1.3 % (0.0-1.0); Eosinophils Absolute Auto 0.26 K/mm3 (0.02-0.50); Hematocrit 37.5 % (35.0-49.0); Hemoglobin 12.6 g/dL (12.0-15.0); Immature Granulocyte Absolute 0.01 K/mm3 (0.00-0.00); Immature Granulocyte Percent A 0.2 % (0.0-0.0); Lymphocytes Absolute Auto 1.16 K/mm3 (1.10-4.50); Lymphocytes Percent Auto 22.4 % (18.0-42.0); Mean Corpuscular HGB Conc 33.6 g/dL (32-36); Mean Corpuscular Hemoglobin 32.5 pg (27.0-31.0); Mean Corpuscular Volume 96.6 fL (78.0-102.0); Mean Platelet Volume 9.6 fl (9.2-11.8); Monocytes Absolute Auto 0.42 K/mm3 (0.10-0.90); Monocytes Percent Auto 8.1 % (2.0-11.0); Neutrophils Absolute Auto 3.27 K/mm3 (1.70-7.20); Platelet Count Result 180 K/mm3 (150-420); Red Blood Count 3.88 M/mm3 (4.20-5.40); Red Cell Distribution Width 12.6 % (11.6-14.4); White Blood Count 5.2 K/mm3 (4.8-10.8)
[2024-03-04 15:41] LABS: Alanine Aminotransferase 28 U/L (14-59); Albumin Level 4.1 g/dL (3.4-5.0); Alkaline Phosphatase 33 U/L (46-116); Anion Gap 7 mmol/L (4-12); Aspartate Amino Transferase 17 U/L (15-37); Bilirubin,Total 0.4 mg/dL (0.00-1.00); Blood Urea Nitrogen 8 mg/dL (7-18); Calcium 9.4 mg/dL (8.5-10.1); Carbon Dioxide 34 mmol/L (21-32); Chloride 94 mmol/L (98-108); Estimated CRCL calculation 57 ml/min; Estimated Glomerular Filt Rate > 60; Glucose 76 mg/dL (70-99); Osmolality Calculated 277 mOsm/kg (285-295); Sodium 135 mmol/L (136-145); Total Protein 7.4 g/dL (6.4-8.2)
[2024-03-04 15:51] LABS: SARS-CoV-2 RNA PCR Negative (Negative)
[2024-03-04 16:00] LABS: Influenza A QL RT-PCR Negative (Negative); Influenza B QL RT-PCR Negative (Negative); RSV RNA, RT-PCR Negative (Negative)
--- NOTE | 2024-03-04 16:01 | ED.GENADULT ---
HPI - General Adult General Chief complaint: Shortness of Breath/Dyspnea Stated complaint: short of breath Time Seen by Provider: 03/04/24 14:54 History of Present Illness HPI narrative: This is a 63-year-old female with history of COPD on 2 L home oxygen presenting with difficulty breathing. Patient says her breathing has been get steadily getting worse for last several months although she feels has gotten acutely worse over the last couple days. She denies fevers chills productive cough or chest pain. No lower extremity edema. She has been taking her breathing treatments as instructed, however she still occasionally smokes cigarettes and marijuana. Related Data Home Medications Medication Instructions Recorded Confirmed levothyroxine 75 mcg capsule 75 mcg PO DAILY 01/17/22 03/04/24 Allergies Allergy/AdvReac Type Severity Reaction Status Date / Time Penicillins Allergy Intermediate RASH/ HIVES Verified 03/04/24 14:50 [facility] Past Medical History Medical History Anxiety Arthritis Carpal tunnel syndrome COPD (chronic obstructive pulmonary disease) Headache Thyroid disorder Surgical History Surgical History H/O knee surgery Family History Family History Father , Throat Cancer Throat cancer Heart disease Thyroid disorder Mother COPD (chronic obstructive pulmonary disease) Sibling Breast cancer Social History Social History Smoking packs per day: 1 Smoking cigarettes per day: 20.0 Years smoked: 40 Smoking pack-years: 40.00 Smoking status: Current some day smoker Second hand tobacco smoke exposure: Yes Alcohol intake: never Substance use: current Substance use type: marijuana Living arrangements: alone Occupation/Education: unemployed 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 Exam Narrative: APPEARANCE: No apparent distress. Head: atraumatic. EYES: EOMI, NOSE: Atraumatic NECK: Trachea midline RESPIRATORY: No increased rate of breathing, speaking full sentences, diffuse wheezing CARDIOVASCULAR: RRR, ABDOMINAL: Non-distended MUSCULOSKELETAl: No obvious deformities NEURO: Alert. Moving 4/4 extremities SKIN:: Warm, dry. Normal color PSYCHIATRIC: Normal affect Course Vital Signs Vital signs: Vital Signs Temperature 97.5 F L 03/04/24 14:50 Pulse Rate 62 03/04/24 14:50 Respiratory Rate 22 H 03/04/24 14:50 Blood Pressure 133/91 H 03/04/24 14:50 Pulse Oximetry 98 03/04/24 14:50 Oxygen Delivery Nasal Cannula 03/04/24 14:50 Oxygen Flow Rate 2 03/04/24 14:50 Temperature 97.5 F L 03/04/24 14:50 Pulse Rate 65 03/04/24 15:50 Respiratory Rate 20 03/04/24 15:50 Blood Pressure 133/91 H 03/04/24 14:50 Pulse Oximetry 100 03/04/24 15:50 Oxygen Delivery Nasal Cannula 03/04/24 14:50 Oxygen Flow Rate 2 03/04/24 14:50 Medical Decision Making MDM Narrative Medical decision making narrative: -Course: This is a 63-year-old female with emphysema on home oxygen. Patient was given an hour long breathing treatment with some improvement. However she still had pursed lip breathing. She was then given another breathing treatment of 5 mg of Valium for anxiety. On re-evaluation the patient's wheezing has improved. Given her poor baseline status I still recommended admission for around the q4 breathing treatments. The patient has declined. She does not want to be admitted to the hospital and will be leaving [place]. She has been given refills on her prescriptions for her nebulizer says she can continue to give herself q.4 hours breathing treatments and will be provided a short course of steroids. She has been instructed to follow-up with her primary care physician and inspector packager. Penny das
[2024-03-04] MEDS: dexAMETHasone SOD PHOS INJ 10 MG/ML 1 ML VIAL IV PUSH (16:12)
[2024-03-04] MEDS: diazePAM INJ (*CRX) 10 MG/2 ML SYRINGE 5 MG IV PUSH (16:26)
[2024-03-04] MEDS: IPRATROPIUM 0.5 MG/ALBUTEROL SULFATE 2.5 MG AMPUL.NEB 3 ML 9 ML (16:30)
[2024-03-04] MEDS: ALBUTEROL SULFATE NEB 2.5 MG/3 ML INH 10 MG INHALATION (16:31)
== END 2024-03-04 17:15 | disposition left against medical advice (07) ==
PROVIDERS: Emergency Provider Emergency Medicine; PCP Internal Medicine
DX: J44.1 Chronic obstructive pulmonary disease with (acute) exacerbation (principal); F17.210 Nicotine dependence, cigarettes, uncomplicated; Z99.81 Dependence on supplemental oxygen; Z79.899 Other long term (current) drug therapy; Z20.822 Contact with and (suspected) exposure to COVID-19
CPT/HCPCS: 36415; 36600; 71046; 80053; 82805; 85025; 87637; 94640; 96365; 96375; 99284; J1100; J3360; J3475; J7030

== ENCOUNTER 2024-09-16 15:05 | Emergency (ER) | payer MEDICARE, SELFPAY ==
[2024-09-16] VITALS (15 sets, daily range): BP systolic 116–127; BP diastolic 82–87; PULSE 66–91; RESP 18–22; TEMP 36.4–36.8; O2SAT 96–100
--- NOTE | ~2024-09-16 | CT_ITS ---
EXAMINATION: CTA chest PE protocol DATE: 09/16/2024 17:41 INDICATION: Shortness of breath. TECHNIQUE: Computed tomography angiography (CTA) of the chest was performed with 100 mL Omnipaque-350 intravenous contrast timed to evaluate the pulmonary arteries. Coronal maximum intensity projection 3D-reconstructions were created by the technologist. Automated exposure control and iterative reconst ruction technique were employed. The dose-length product was 155.54 mGy-cm. COMPARISON: Chest CT 01/13/2024 FINDINGS: There is moderate emphysema. There is mild atelectasis in the upper lobes. No pleural effus ion. The heart size is normal. No pericardial effusion. There is no pulmonary embolus. There is a 6 m m cyst in the liver. There is severe cervical spondylosis and mild thoracic spondylosis. There are ch ronic compression fractures of T4 and T6. There is mild chronic anterior wedging of T11 and T12 verte bral bodies. IMPRESSION: 1. No pulmonary embolus. 2. Moderate emphysema. Reviewed, dictated and finalized at location A. CONDITIONING UNIT ASSEMBLER
--- NOTE | ~2024-09-16 | XR_ITS ---
EXAMINATION: XR chest 1V portable 09/16/2024 15:59 INDICATION: COPD exacerbation. Cough and shortness of breath. PROCEDURE: AP portable chest COMPARISON: Comparison to multiple prior studies sequentially, with oldest reviewed study dated 03/2021. FINDINGS: The lungs are clear. The lungs are hyperinflated which is consistent with, but not diagnost ic of chronic obstructive pulmonary disease. The cardiomediastinal silhouette is within normal limits . There are no pleural effusions. There is no pneumothorax suspected. IMPRESSION: 1: NO ACUTE CARDIOPULMONARY DISEASE. Reviewed, dictated and finalized at location B. MACY TECH
--- NOTE | 2024-09-16 15:17 | ED_ITS ---
HPI - SOB/Dyspnea General Chief Complaint: Shortness of Breath/Dyspnea Stated Complaint: SOB Time Seen by Provider: 09/16/24 15:17 Source: patient Mode of arrival: ambulatory Limitations: no limitations History of Present Illness HPI Narrative: 64-year-old female ex-smoker (quit 2 months ago), with COPD on home oxygen, hypothyroidism, anxiety, arthritis presents with -- worsening shortness of breath. She has been of orals prednisone for a couple of weeks. she takes albuterol and breast free inhalers. no chest pain. No cough or sputum production. No fever or chills. No chest pain MD elicited complaint: shortness of breath Pertinent past history: COPD Onset (ago): day(s) Timing: constant Severity: severe Exacerbating factors: nothing Relieving factors: nothing Known history of: COPD Associated symptoms: denies other symptoms and wheezing Treatment prior to arrival: oxygen Related Data Home oxygen amount: 3 liters Home Medications ?Medication ?Instructions ?Recorded ?Confirmed ?Last Taken ?Type levothyroxine 75 mcg capsule 75 mcg PO DAILY 01/17/22 09/16/24 Unknown History Allergies Allergy/AdvReac Type Severity Reaction Status Date / Time Penicillins Allergy Intermediate RASH/ HIVES Verified 09/16/24 16:11 Review of Systems 2 Review of Systems: All systems reviewed & are unremarkable except as noted in HPI and below Constitutional: Constitutional: Reports as per HPI and Reports no additional constitutional complaints Eyes: Eyes: Reports as per HPI and Reports no additional eye complaints ENT: Reports system reviewed and no additional complaints, except as documented and Reports as per HPI Cardiovascular: Cardiovascular: Reports as per HPI and Reports no additional cardiovascular complaints Respiratory: Respiratory: Reports as per HPI, Reports no additional respiratory complaints and Reports dyspnea Gastrointestinal: Gastrointestinal: Reports as per HPI and Reports no additional gastrointestinal complaints Genitourinary: Genitourinary: Reports no additional female genitourinary complaints and Reports as per HPI Musculoskeletal: Musculoskeletal: Reports no additional musculoskeletal complaints and Reports as per HPI Integumentary/Breasts: Skin/Breast: Reports system reviewed and no additional complaints, except as docu and Reports as per HPI Neurologic: Reports system reviewed and no additional complaints, except as documented and Reports as per HPI Psychiatric: Psychiatric: Reports no additional psychiatric complaints and Reports as per HPI Endocrine: Endocrine: Reports no additional endocrine complaints and Reports as per HPI Hematologic/Lymphatic: Hematologic/Lymphatic: Reports no additional hematologic/lymphatic complaints and Reports as per HPI Allergic/Immunologic: Allergic/Immunologic: Reports no additional allergic/immunologic complaints and Reports as per HPI [facility] Past Medical History Medical History Carpal tunnel syndrome Thyroid disorder Headache COPD (chronic obstructive pulmonary disease) Arthritis Anxiety Surgical History Surgical History H/O knee surgery Family History Family History Father , Throat Cancer Throat cancer Heart disease Thyroid disorder Mother COPD (chronic obstructive pulmonary disease) Sibling Breast cancer Social History Social History Smoking packs per day: 0.25 Smoking cigarettes per day: 5.0 Years smoked: 40 Smoking pack-years: 10.00 Smoking status: Current some day smoker Second hand tobacco smoke exposure: Yes Smoking end date: 07/31/23 Alcohol intake: never Substance use: current Substance use type: marijuana Living arrangements: alone Occupation/Education: unemployed 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 Exam 2 Narrative: Vitals are stable Const: General: ill appearing Nutritional Appearance: well nourished O rientation/consciousness: patient oriented x3 Limitations: no limitations HENMT: Head: normal to inspection Ears: external ears normal F radha/Nose/Sinus: Normal external nose present Face and sinus: normal facial exam Mouth: Yes Normal oral and palatal mucosa present Throat: posterior oropharynx normal Eyes: Conjunctivae: conjunctivae normal Pupils: Equal, round and reactive pupils present EOM: EOMs intact bilaterally Direct Ophthalmoscopy: no photophobia Neck: Neck: normal visual inspection, no lymphadenopathy and no meningeal signs Chest: Chest palpation & inspection: normal inspection of the chest Resp: Auscultation: wheezes and diminished lung sounds Cardio: Rate: regular rate Rhythm: regular rhythm GI: GI Palp: Yes Soft to palpation Auscultation: normal bowel sounds O ther: no tenderness/ rigidity /rebound. : General: Yes no CVA tenderness Back/Spine/Pelvis: Back: no CVA tenderness Skin: General skin exam: normal color Rashes: no rashes Wounds: no wounds Neuro: General: patient oriented x3, moves all extremities, no meningeal signs, no focal motor deficits and CN's II-XI intact bilaterally Cranial nerves: Yes Nystagmus not present Speech: normal speech Gait exam (Neuro): Normal gait present Extrem: General: normal to inspection and no clubbing, cyanosis or edema Psych: Mental Status: mental status grossly normal Affect: normal affect Attitude: cooperative Course Course Emergency Course: COPD exacerbation-- ABG on 3 L was noted to be 739/51/102 / 98%. Chest x-ray did not show any acute findings. Patient was noted to have a positive D-dimer. Will get a CTA of the chest to rule out PE. Patient received Solu-Medrol, DuoNeb treatment and a dose of Zithromax. patient tested negative for RSV /influenza / COVID. CTA of the chest was negative for PE. No infiltrates were noted. CT revealed emphysema. Vital Signs Vital signs: Vital Signs Pulse Oximetry 97 09/16/24 15:05 Oxygen Delivery Nasal Cannula 09/16/24 15:05 Oxygen Flow Rate 3 09/16/24 15:05 Temperature 36.4 C 09/16/24 15:24 Pulse Rate 68 09/16/24 16:31 Respiratory Rate 20 09/16/24 16:31 Blood Pressure 116/82 09/16/24 16:31 Pulse Oximetry 100 09/16/24 16:31 Oxygen Delivery Nasal Cannula 09/16/24 15:05 Oxygen Flow Rate 3 09/16/24 15:05 MDM - SOB/Dyspnea MDM Narrative Medical decision making narrative: COPD exacerbation acute on chronic hypoxic hypercarbic respiratory failure Differential Diagnosis Differential diagnosis: Likely congestive heart failure and community acquired pneumonia Lab Data 09/16/24 15:50 09/16/24 15:50 Labs: Lab Results 09/16/24 Range/Units 15:50 WBC 7.3 (4.8-10.8) K/mm3 RBC 3.77 L (4.20-5.40) M/mm3 Hgb 12.0 (11.7-13.8) g/dL Hct 36.2 (35.0-42.0) % MCV 96.0 (78.0-102.0) fL MCH 31.8 H (27.0-31.0) pg MCHC 33.1 (32-36) g/dL RDW 12.8 (11.6-14.4) % Plt Count 211 (150-420) K/mm3 MPV 9.0 L (9.2-11.8) fl Immature Gran % (Auto) 0.3 H (0.0-0.0) % Neut % (Auto) 64.5 (50.0-70.0) % Lymph % (Auto) 23.2 (18.0-42.0) % [place] % (Auto) 8.8 (2.0-11.0) % Eos % (Auto) 2.5 (1.0-6.0) % Baso % (Auto) 0.7 (0.0-1.0) % Lymph # (Auto) 1.68 (1.10-4.50) K/mm3 [place] # (Auto) 0.64 (0.10-0.90) K/mm3 Eos # (Auto) 0.18 (0.02-0.50) K/mm3 Baso # (Auto) 0.05 (0.00-0.10) K/mm3 Abs Immat Gran (auto) 0.02 H (0.00-0.00) K/mm3 Absolute Neuts (auto) 4.68 (1.70-7.20) K/mm3 Absolute Nucleated RBC 0.00 (0.00-0.00) K/mm3 Nucleated RBC % 0.0 (0-0.0) % D-Dimer 0.90 H* (0.19-0.50) mg/L Sodium 135 L (136-145) mmol/L Potassium 4.1 (3.5-5.1) mmol/L Chloride 95 L (98-108) mmol/L Carbon Dioxide 38 H (21-32) mmol/L Anion Gap 2 L (4-12) mmol/L BUN 7 (7-18) mg/dL Creatinine 0.48 L (0.55-1.02) mg/dL Estim Creat Clear Calc 68 ml/min Estimated GFR > 60 (59 - ) Glucose 72 (70-99) mg/dL Calculated Osmolality 277 L (285-295) mOsm/kg Lactic Acid 0.5 (0.4-2.0) mmol/L Calcium 9.2 (8.5-10.1) mg/dL Total Bilirubin 0.3 (0.00-1.00) mg/dL AST 12 L (15-37) U/L ALT 29 (14-59) U/L Alkaline Phosphatase 45 L (46-116) U/L Troponin I < 4.0 (0.00-60.4) ng/L NT-Pro-B Natriuret Pep 145 H (0-125) pg/mL Total Protein 6.5 (6.4-8.2) g/dL Albumin 3.7 (3.4-5.0) g/dL Influenza A (RT-PCR) Negative (Negative) Influenza B (RT-PCR) Negative (Negative) RSV (RT-PCR) Negative (Negative) SARS-CoV-2 RNA (RT-PCR) Negative (Negative) ABG Data ABG results: 09/16/24 15:24 Puncture Site Right radial ABG pH 7.39 ABG pCO2 50.9 H ABG pO2 102.3 H ABG PO2/FiO2 Ratio Not Reportable ABG HCO3 30.2 H ABG O2 Saturation 97.6 H ABG O2 Content 17.7 ABG Base Excess 4.2 H A-a Gradient Not Reportable Oxyhemoglobin 96.8 Total Hemoglobin TNP O2 Delivery Device Nasal cannula O2 Liters/Min 3.0 Discharge Plan Discharge Clinical Impression: COPD exacerbation, Chronic respiratory failure with hypercapnia Patient Disposition: Home, Self-Care Condition: Stable Instructions: Antibiotic Form, COPD (Chronic Obstructive Pulmonary Disease) (ED) Patient Language: Urdu Prescriptions: New azithromycin [Zithromax] 250 mg tablet 250 mg PO DAILY 4 Days Qty: 4 0RF Rx Instructions: start on day 2 of therapy prednisone 20 mg tablet 20 mg PO BID Qty: 7 0RF No Action albuterol sulfate 1.25 mg/3 mL solution for nebulization 1.25 mg inhalation Q4H Qty: 90 0RF levothyroxine 75 mcg capsule 75 mcg PO DAILY (DME) inhalational spacing device Spacer See Rx Instructions .ROUTE .MEDSUPPLY Qty: 1 0RF Rx [facility]: [facility] 160-9-4.8 mcg/actuation HFA aerosol inhaler 2 inh INHALATION BID Qty: 10.7 11RF Rx Instructions: Rinse and spit. Use with spacer. prednisone 10 mg tablet 10 mg PO DIRECTED Qty: 45 0RF Rx Instructions: Take 5 tablets by mouth daily for 3 days, then 4 tabs/day 3 days, 3 tabs/day 3 days, 2 tabs/day 3 days, 1 tab/day for 3 days albuterol sulfate 90 mcg/actuation HFA aerosol inhaler 2 inh INHALATION Q4-6H PRN (Reason: shortness of breath or wheezing) Qty: 8.5 5RF azithromycin 500 mg tablet 500 mg PO QMWF 30 Days Qty: 13 11RF Follow-up/Referrals: Leobardo Mitchell APRN [Advanced Practice Nurse] - Time of Disposition: 18:11
--- NOTE | 2024-09-16 15:23 | ECG_ITS ---
Test Date: 2024-09-16 15:47:06 Measurements Intervals [place] Rate: 65 P: 83 [place]: 133 QRS: 91 QRSD: 90 T: 73 QT: 373 QTc: 388 Interpretive Statements SINUS RHYTHM BORDERLINE RIGHT AXIS DEVIATION [QRS AXIS > 90] POSSIBLE RIGHT VENTRICULAR CONDUCTION DELAY [RSR (QR) IN V1/V2] No previous ECG available for comparison Electronically Signed On 09-17-2024 15:49:31 SECURITY MONITOR by Iglesia Romero M.D.
[2024-09-16] MEDS: IPRATROPIUM 0.5 MG/ALBUTEROL SULFATE 2.5 MG AMPUL.NEB 3 ML INHALATION (15:31)
[2024-09-16 15:55] LABS: Basophils Absolute Auto 0.05 K/mm3 (0.00-0.10); Basophils Percent Auto 0.7 % (0.0-1.0); Eosinophils Absolute Auto 0.18 K/mm3 (0.02-0.50); Eosinophils Percent Auto 2.5 % (1.0-6.0); Hematocrit 36.2 % (35.0-42.0); Immature Granulocyte Absolute 0.02 K/mm3 (0.00-0.00); Immature Granulocyte Percent A 0.3 % (0.0-0.0); Lymphocytes Absolute Auto 1.68 K/mm3 (1.10-4.50); Lymphocytes Percent Auto 23.2 % (18.0-42.0); Mean Corpuscular HGB Conc 33.1 g/dL (32-36); Mean Corpuscular Hemoglobin 31.8 pg (27.0-31.0); Monocytes Absolute Auto 0.64 K/mm3 (0.10-0.90); Monocytes Percent Auto 8.8 % (2.0-11.0); Neutrophils Absolute Auto 4.68 K/mm3 (1.70-7.20); Neutrophils Percent Auto 64.5 % (50.0-70.0); Platelet Count Result 211 K/mm3 (150-420); Red Blood Count 3.77 M/mm3 (4.20-5.40); Red Cell Distribution Width 12.8 % (11.6-14.4); White Blood Count 7.3 K/mm3 (4.8-10.8)
[2024-09-16 16:19] LABS: Base Excess ABG 4.2 mmol/L (0-2); HCO3 ABG 30.2 mmol/L (23-29); Oxygen Content ABG 17.7 %vol (16.0-22.0); Oxygen Saturation ABG 97.6 % (95-97); Oxyhemoglobin 96.8 % (94-100); PCO2 ABG 50.9 mmHg (35-45); PO2 ABG 102.3 mmHg (80-90); pH ABG 7.39 (7.35-7.45)
[2024-09-16 16:20] LABS: Device NASAL CANNULA; Modified Allen's Test Pass; Site Drawn RIGHT RADIAL
[2024-09-16 16:22] LABS: Alanine Aminotransferase 29 U/L (14-59); Albumin Level 3.7 g/dL (3.4-5.0); Alkaline Phosphatase 45 U/L (46-116); Anion Gap 2 mmol/L (4-12); Aspartate Amino Transferase 12 U/L (15-37); Bilirubin,Total 0.3 mg/dL (0.00-1.00); Blood Urea Nitrogen 7 mg/dL (7-18); Calcium 9.2 mg/dL (8.5-10.1); Carbon Dioxide 38 mmol/L (21-32); Chloride 95 mmol/L (98-108); Estimated CRCL calculation 68 ml/min; Estimated Glomerular Filt Rate > 60; Glucose 72 mg/dL (70-99); NT Pro B Type Natriuretic Pept 145 pg/mL (0-125); Osmolality Calculated 277 mOsm/kg (285-295); Potassium 4.1 mmol/L (3.5-5.1); Sodium 135 mmol/L (136-145); Total Protein 6.5 g/dL (6.4-8.2); Troponin I < 4.0 ng/L (0.00-60.4)
[2024-09-16 16:24] LABS: Lactic Acid Reflex 0.5 mmol/L (0.4-2.0)
[2024-09-16 16:34] LABS: SARS-CoV-2 RNA PCR Negative (Negative)
[2024-09-16 16:35] LABS: Influenza A QL RT-PCR Negative (Negative); Influenza B QL RT-PCR Negative (Negative); RSV RNA, RT-PCR Negative (Negative)
[2024-09-16] MEDS: AZITHROMYCIN 500 MG/NS 250 ML 500 MG/250 ML BAG 250 MG IVPB (17:40)
[2024-09-16] MEDS: LACTATED RINGERS 500 ML 999 ML IV CONT (17:40)
== END 2024-09-16 18:55 | disposition home or self-care (01) ==
PROVIDERS: Emergency Provider Internal Medicine Critical Care Medicine; PCP Internal Medicine
DX: J44.1 Chronic obstructive pulmonary disease with (acute) exacerbation (principal); J96.92 Respiratory failure, unspecified with hypercapnia; E03.9 Hypothyroidism, unspecified; F17.210 Nicotine dependence, cigarettes, uncomplicated; Z79.899 Other long term (current) drug therapy
CPT/HCPCS: 36415; 36600; 71045; 71275; 80053; 82805; 83605; 83880; 84484; 85025; 85380; 87637; 93005; 94640; 96365; 99284; J0456; J7120; Q9967

== ENCOUNTER 2024-11-05 11:45 | Emergency (ER) | payer MEDICARE, SELFPAY ==
[2024-11-05] VITALS (39 sets, daily range): BP systolic 95–125; BP diastolic 73–88; PULSE 70–109; RESP 16–28; TEMP 36.9; O2SAT 92–100
--- NOTE | ~2024-11-05 | XR_ITS ---
EXAMINATION: XR chest 1V portable DATE: 11/05/2024 13:23 INDICATION: Chronic obstructive pulmonary disease. TECHNIQUE: A single frontal view of the chest was obtained. COMPARISON: Chest single view 09/16/2024, chest CT 09/16/2024 FINDINGS: The lungs are hyperexpanded with lucencies, consistent with emphysema. There is mild atelec tasis at the lung bases. No pleural effusion or pneumothorax. The heart size is normal. IMPRESSION: 1. Emphysema. Reviewed, dictated and finalized at location A. 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 Emphysema.
--- NOTE | ~2024-11-05 | CT_ITS ---
EXAMINATION: CT abdomen pelvis w con DATE: 11/05/2024 13:23 INDICATION: Abdominal pain TECHNIQUE: Computed tomography (CT) of the abdomen and pelvis was performed with 100 mL Omnipaque-350 intravenous contrast. Automated exposure control and iterative reconstruction technique were employe d. The dose-length product was 163.45 mGy-cm. COMPARISON: Chest CT dated 09/16/2024 FINDINGS: Moderate emphysema at the lung bases. Heart size is normal. No pericardial or pleural effusion. There are couple subcentimeter low-attenuation hepatic cyst. Gallbladder, spleen, pancreas and bilateral a drenal glands are normal. Mild right hydroureteronephrosis with dilated ureter extending to the upper pelvis with & transition point where it encounters a large loculated gas and fluid collection which measures 12.9 x 9.6 cm. There is minimal left hydronephrosis without hydroureter. The gas loculated w ithin the fluid collection has a somewhat serpiginous tubular configuration such as could be seen wit hin bowel although no enhancing bowel armendariz are appreciated. There are a few subtle nonenhancing inte rnal septations. There is dilation of the gas and fluid-filled proximal small bowel measuring up to 4 .4 cm with transition point in the caudal aspect of the loculated pelvic fluid collection consistent with a bowel obstruction. The distalmost ileum is decompressed. Normal appendix. Moderate amount of s tool scattered throughout the normal colon. Bladder is normal. The uterus is not identified and has l ikely been surgically resected. There is a small amount of additional nonloculated ascites interspers ed amongst the bowel in the abdomen and pelvis. No free intraperitoneal gas outside of the loculated gas and fluid collection in the pelvis. L5 spondylolysis with bilateral L5 pars interarticularis defe cts and 1.3 cm anterolisthesis L5 on S1. IMPRESSION: 1. Small bowel obstruction with large loculated gas and fluid collection in the deep pelvis consisten t with a bowel perforation. There is unusual configuration of the gas loculated within the collection and could not exclude that the at least some of the gas and fluid within the fluid collection is loc ated within ischemic loops of bowel without discernible mural enhancement. Dr. Cartre discussed the se findings with Dr. Thomas at 1:40 PM. 2. Mild right hydroureteronephrosis and minimal left hydronephrosis with transition point in the righ t ureter alongside the fluid collection suggesting this could be related to extrinsic compression. Reviewed, dictated and finalized at location A. 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 Small bowel obstruction with large loculated gas and fluid collection in the deep pelvis consistent with a bowel perforation. There is unusual configuratio n of the gas loculated within the collection and could not exclude that the at least some of the gas and fluid within the fluid collection is located within i schemic loops of bowel without discernible mural enhancement. Dr. Carter disc ussed these findings with Dr. Thomas at 1:40 PM. 2. Mild right hydroureteronephrosis and minimal left hydronephrosis with transi tion point in the right ureter alongside the fluid collection suggesting this c ould be related to extrinsic compression.
--- NOTE | 2024-11-05 11:48 | ECG_ITS ---
Test Date: 2024-11-05 12:11:53 Measurements Intervals [place] Rate: 75 P: -68 MO: 89 QRS: 87 QRSD: 90 T: 73 QT: 377 QTc: 421 Interpretive Statements ECTOPIC ATRIAL RHYTHM INCOMPLETE RIGHT BUNDLE BRANCH BLOCK BASELINE ARTIFACT- I, II, III, V1-V2 ABNORMAL ECG Compared to ECG 09/16/2024 15:47:06 SINUS RHYTHM NO LONGER PRESENT Electronically Signed On 11-05-2024 12:52:32 TELEPHONE ORDER SUPERVISOR by Travon Newton D.O.
--- OUTSIDE RECORDS SUMMARY | 2024-11-05 11:54 | XMS_ITS | Data Portability ---
Author Organization [place] [facility], Main Office Address [address] [place] [address] Care Team Providers Care Drivability Technician Name Role Phone JACQUI ALLRED Primary Care Provider Assessment Encounter Date Assessment Date Assessment LastModified by Organization Details LastModified Time 03/26/2023 03/26/2023 The patient gave verbal consent using TeleHealth services and the consent is documented in the medical record prior to using the service. The patient has been informed of what a TeleMedicine visit is. Patient is located at home. Provider is located at office. Names and roles of persons in addition to the patient and provider participating in telemedicine services include none. The patient had a 14 minute TeleMedicine consultation via other to discuss the following: GOOGLE MEET [email or web address] Not available 03/26/2023 14:02:56 Plan of Treatment Reminders Order Date Submit Date Provider Last Modified By Organization Details Last Modified Time Details Appointments None recorded. Lab None recorded. Referral None recorded. Procedures None recorded. Surgeries None recorded. Imaging LDCT, chest, for lung cancer screening - Patient can get LDCT done on or after 01/09/2023, please call to schedule her. Thanks! 2022 023 [facility] (Imaging), [address] [place], [address], 3 12:02:11 Medication Orders Daliresp 250 mcg tablet 2022 023 [facility], [facility] [address], [id number], 3 11:40:19 Daliresp 500 mcg tablet 2022 023 [facility], [address] [facility] [place], [id number], 11:40:17 prednisone 20 mg tablet 2022 023 [email or web address] [facility], [address], [place], [place], [id number], 10:06:49 prednisone 10 mg tablet 2022 023 TREY [facility], [address], [place], [place], [id number], 3 11:05:19 levofloxaci n 750 mg tablet 2022 023 [email or web address] [facility], [address], [id number], 10:04:42 prednisone 10 mg tablet 2022 023 TREY [facility], [address], [id number], 11:05:21 Patient TargetsNo targets recorded. Patient Instructions Encounter Date Encounter Id Patient Instructions Last Modified By Organization Details Last Modified Time 03/26/2023 [id number] Due to the COVID-19 (Novel Coronavirus) pandemic, it is within this context (and with the understanding that this method of patient encounter is in the patient s best interest as well as the health and safety of other patients and the public) that telehealth is being provided for this patient encounter rather than a [id number]-[id number] visit. This patient encounter is appropriate at this time. This patient has been advised of the potential risks and limitations of this mode of treatment (including, but not limited to, the absence of in-person examination) and has agreed to be treated in a remote fashion despite these risks. Any and all of the patient s/patient s family s questions on this issue have been answered, and I have made no promises or guarantees to the patient. The patient has also been advised to contact this office for worsening conditions or problems, and seek emergency medical treatment and/or call 911 if the patient deems either necessary. HPI and/or vitals, if listed, were provided by the patient. [email or web address] Not available 03/26/2023 10:01:42 Reason for Referral None Reported. Results Created Date Observation Date Name Description Value Unit Range Abnormal Flag Note LastModifiedBy Organization Detail LastModifiedTime 01/11/2001/10/2023 LDCT, chest , for lung cance r steffen kelly No observ ation record ed. [email or web address] [facility] [address] [place], [address], 01/11/2023 18:19:40 Result Notes None recorded. Problems Name Problem SNOMED Code Status Onset Date Resolution Date Notes Provider Name and Address Organization Details Recorded Time Chronic obstructiv e pulmonary disease 01385129 Active 2019 Not Available [facility] 3 02:45:56 Acute exacerbati on of chronic obstructiv e pulmonary disease 108083907 Active 2021 Not Available [facility] 3 02:45:57 Severe chronic obstructiv e pulmonary disease 955596013 Active 2021 Not Available [facility] 3 02:45:57 Nicotine dependence 54829936 Active 2020 Not Available [facility] 3 02:45:57 Dyspnea on exertion 94300849 Active 2020 Not Available [facility] 3 02:45:57 Chronic cough 07835332 Active 2021 Not Available [facility] 3 02:45:57 Generalize d rash 349929804 Active 2021 Not Available [facility] 3 02:45:57 Marijuana user 042749157 Active 2020 Not Available [facility] 3 02:45:57 Exposure to SARS-CoV-2 Active 2019 Not Available [facility] 3 02:45:57 Ex-smoker 4409261 Completed 201912/21/2020 Not Available [facility] 3 02:45:57 Problem Notes None recorded. Procedures Surgical History Date Name Laterality Status Provider Name and Address Organization Details Recorded Time 3 6 Minute Walk Test completed Vaishnavi Morse, [facility] [address] [facility], [facility] [address], [place], [address], [facility] 12/25/2022 11:11:12 1 removal of mole of skin by excision completed Not Available [facility] 11/28/2022 02:40:14 Imaging Results Imaging Date Name Status LastModified by Organiz ation Details LastModified Time 01/10/2023 LDCT, chest, for lung cancer screening completed [address] [place], [address], 01/11/2023 18:19:40 Procedure Notes None recorded. Medical Equipment None Reported. Allergies Allergen ID Allergen Name Allergen Category Reaction Reaction Severity Criticality Documentation Date Start Date Code Code System Note Provider Name and Address Organization Details Recorded Time 412 Product containin g penicilli n and antibioti c (product) medicatio n Not available Not available Not available 11/28/2022 17375 05 SNOMED Not Available [facility] 3 02:53:32 Medications Name Sig Start Date Stop Date Status Note LastModified by Organization Details LastModified Time fluconazole 100 mg tablet Take 1 tablet every day by oral route as directed for 10 days. 10/23 completed Not Available Not Available Not Available nystatin 100,000 unit/mL oral suspension Take 5 mL 4 times a day by oral route as directed for 10 days. active Not Available Not Available No t Available prednisone 10 mg tablet Take 6 tablets for 3 days, then 5 tablets for 3 days then 4 tablets for 3 days then 3 tablets for 3 days then 2 tablets for 3 days then to maintenan ce dose of 10 mg daily active Not Available Not Available No t Available doxycycline hyclate 100 mg capsule Take 1 capsule twice a day by oral route as directed for 7 days. active Not Available Not Available No t Available azithromyci n 250 mg tablet TAKE 2 TABLETS BY MOUTH ON DAY 1, AND THEN TAKE 1 TABLET BY MOUTH ONCE A DAY ON DAY 2 THROUGH DAY 5 12/20 completed Not Available Not Available Not Available hydrocodone 5 mg-acetamin ophen 325 mg tablet TAKE 1 TABLET BY MOUTH EVERY 6 TO 8 HOURS NEEDED FOR PAIN 12/20 completed Not Available Not Available Not Available prednisone 20 mg tablet 2022 active Not Available Not Available Not Avai lable triamcinolo ne acetonide 0.1 % topical cream active Not Available Not Available Not Available levothyroxi ne 75 mcg tablet TAKE 1 TABLET BY MOUTH ONCE DAILY active Not Available Not Available No t Available budesonide 0.25 mg/2 mL suspension for nebulizatio n Inhale 2 mL twice a day by nebulizat ion route as directed for 30 days. 04/17 completed Not Available Not Available Not Available montelukast 10 mg tablet TAKE 1 TABLET BY MOUTH DAILY active Not Available Not Available No t Available mupirocin 2 % topical ointment active Not Available Not Available Not Available levofloxaci n 500 mg tablet TAKE 1 TABLET BY MOUTH EVERY 24 HOURS DIRECTED FOR 7 DAYS active Not Available Not Available No t Available levofloxaci n 750 mg tablet Take 1 tablet every day by oral route as directed for 7 days. 08/06 completed Not Available Not Available Not Available albuterol sulfate HFA 90 mcg/actuati on aerosol inhaler INHALE 2 PUFFS BY MOUTH EVERY 4 TO 6 HOURS NEEDED active Not Available Not Available No t Available ipratropium bromide 42 mcg (0.06 %) nasal spray [place] 2 sprays 3 times a day by intranasa l route as directed for 30 days. 12/20 completed Not Available Not Available Not Available cefdinir 300 mg capsule TAKE 1 CAPSULE BY MOUTH EVERY 12 HOURS active Not Available Not Available No t Available fluticasone propionate 50 mcg/actuati on nasal spray,suspe nsion active Not Available Not Available Not Available doxycycline hyclate 100 mg tablet Take 1 tablet twice a day by oral route as directed for 7 days. active Not Available Not Available No t Available Pneumovax-2 3 25 mcg/0.5 mL injection syringe PHARMACIS T ADMINISTE RED IMMUNIZAT ION ADMINISTE RED AT TIME OF DISPENSIN G 06/08 completed Not Available Not Available Not Available azithromyci n 500 mg tablet Take 1 tablet 3 times a week by oral route as directed for 28 days. active Not Available Not Available No t Available olopatadine 0.2 % eye drops INSTILL 1 DROP INTO AFFECTED EYE(S) ONCE DAILY 06/08 completed Not Available Not Available Not Available Brovana 15 mcg/2 mL solution for nebulizatio n Inhale 2 mL twice a day by inhalatio n route as directed for 30 days. 12/25 completed Not Available Not Available Not Available Symbicort 80 mcg-4.5 mcg/actuati on HFA aerosol inhaler INHALE 2 PUFFS BY MOUTH TWICE DAILY IN THE MORNING AND IN THE EVENING active Not Available Not Available No t Available roflumilast 500 mcg tablet Take 1 tablet every day by oral route as directed for 30 days. active Not Available Not Available No t Available Stiolto Respimat 2.5 mcg-2.5 mcg/actuati on solution for inhalation INHALE 2 PUFFS BY MOUTH ONCE DAILY DIRECTED 04/17 completed Not Available Not Available Not Available Bevespi Aerosphere 9 mcg-4.8 mcg HFA aerosol inhaler Inhale 2 puffs twice a day by inhalatio n route as directed for 30 days. 12/25 completed Not Available Not Available Not Available Trelegy Ellipta 100 mcg-62.5 mcg-25 mcg powder for inhalation INHALE 1 PUFF BY MOUTH ONCE DAILY DIRECTED 10/23 completed Not Available Not Available Not Available Shingrix (PF) 50 mcg/0.5 mL intramuscul ar suspension, kit PHARMACIS T ADMINISTE RED IMMUNIZAT ION ADMINISTE RED AT TIME OF DISPENSIN G 06/08 completed Not Available Not Available Not Available roflumilast 250 mcg tablet Take 1 tablet every day by oral route as directed for 28 days. active Not Available Not Available No t Available Yupelri 175 mcg/3 mL solution for nebulizatio n Inhale 3 mL every day by nebulizat ion route as directed for 30 days. 04/17 completed Not Available Not Available Not Available Fluzone Quad (PF) 60 mcg (15 mcg x 4)/0.5 mL IM syringe PHARMACIS T ADMINISTE RED IMMUNIZAT ION ADMINISTE RED AT TIME OF DISPENSIN G 06/08 completed Not Available Not Available Not Available Flublok Quad (PF) 180 mcg (45 mcg x 4)/0.5 mL IM syringe PHARMACIS T ADMINISTE RED IMMUNIZAT ION ADMINISTE RED AT TIME OF DISPENSIN G 06/08 completed Not Available Not Available Not Available Breztri Aerosphere 160 mcg-9mcg-4. 8mcg/actuat ion HFA aerosol inhaler Inhale 2 puffs twice a day by inhalatio n route as directed for 30 days. active Not Available Not Available No t Available Vitals Date Recorded Body height Body mass index (BMI) Body weight Body temperature Heart rate Oxygen saturation Oxygen saturation in Arterial blood by Pulse oximetry Systolic blood pressure Diastolic blood pressure Provider Name and Address Organization Details Last Updated DateTime 3 162.56 cm 17.3 kg/m2 74297.8 3 g 87.1 [degF] 62 /min 94 % 94 % 122 mm[Hg] 70 mm[Hg] Smita Gore MA [place] [employer] 3 10:00:40 Date Recorded Body height Body mass index (BMI) Body weight Body temperature Heart rate Oxygen saturation Oxygen saturation in Arterial blood by Pulse oximetry Systolic blood pressure Diastolic blood pressure Provider Name and Address Organization Details Last Updated DateTime 3 162.56 cm 16.8 kg/m2 24824.0 5 g 97.2 [degF] 60 /min 95 % 95 % 122 mm[Hg] 60 mm[Hg] Smita Gore MA [employer] [facility] 3 11:06:06 Date Recorded Body height Body mass index (BMI) Body weight Provider Name and Address Organization Details Last Updated DateTime 03/26/2023 162.56 cm 16.8 kg/m2 12009.05 g Amelia Pearson [employer] 03/26/2023 10:02:24 Date Recorded Body mass index (BMI) Body height Oxygen saturation Oxygen saturation in Arterial blood by Pulse oximetry Heart rate Body temperature Body weight Systolic blood pressure Diastolic blood pressure Provider Name and Address Organization Details Last Updated DateTime 3 17.5 kg/m2 162.56 cm 96 % 96 % 68 /min 96.4 [degF] 44528.4 2 g 122 mm[Hg] 70 mm[Hg] Not Available [employer] 3 02:43:34 Date Recorded Body height Body mass index (BMI) Body weight Body temperature Heart rate Oxygen saturation Oxygen saturation in Arterial blood by Pulse oximetry Systolic blood pressure Diastolic blood pressure Provider Name and Address Organization Details Last Updated DateTime 3 162.56 cm 16.1 kg/m2 12305.6 8 g 97.2 [degF] 58 /min 96 % 96 % 128 mm[Hg] 76 mm[Hg] Amelia Pearson [place] [employer] [facility] 3 10:40:51 Social History Question Answer Notes LastModified by Organizat ion Details LastModified Time Tobacco Smoking Status Current Every Day Smoker down to one cig per day Amelia Pearson [facility] 03/26/2023 10:03:35 What Is Your Level Of Alcohol Consumption? None [id number] Information not available 11/28/2022 What Is Your Level Of Caffeine Consumption? Moderate [id number] Information not available 11/28/2022 How Much Tobacco Do You Chew? None [id number] Information not available 11/28/2022 In The 14 Days Before Symptom Onset, Have You Had Close Contact With A Laboratory-confir med COVID-19 While That Case Was Ill? No [id number] Information not available 11/28/2022 In The 14 Days Before Symptom Onset, Have You Had Close Contact With A Person Who Is Under Investigation For COVID-19 While That Person Was Ill? No [id number] Information not available 11/28/2022 Which Illicit Or Recreational Drugs Have You Used? Marijuana One To Two Pinch Hits Per Day [id number] Information not available 11/28/2022 Do You Or Have You Ever Used E-cigarettes Or Vape? Never Used Electronic Cigarettes [id number] Information not available 11/28/2022 What Was The Date Of Your Most Recent Tobacco Screening? 08/22/2021 [id number] Information not available 11/28/2022 Do You Have Any Pets? Yes One Dog And One Cat [id number].[id number] Information not available 11/28/2022 At What Age Did You Start Smoking Tobacco? 13 [id number].[id number] Information not available 11/28/2022 Do You Or Have You Ever Used Smokeless Tobacco? Never Used Smokeless Tobacco [id number].60773 [id number] Information not available 11/28/2022 How Much Tobacco Do You Smoke? 0.25 PPD Less Than 1/4 Pack Per Day [id number] Information not available 11/28/2022 Do You Use Any Illicit Or Recreational Drugs? Yes [id number].[id number] Information not available 11/28/2022 Have You Recently Traveled Abroad? No [id number].[id number] Information not available 11/28/2022 Have You Used IV Drugs? No [id number] Information not available 11/28/2022 Sex: Female Functional Status None recorded. Mental Status None recorded. Family History Nothing Reported. Medical History No medical history recorded. Gynecological HistoryNo gynecological history recorded. Obstetrics History GPAL:G 0 P 0 0 0 0 Immunizations Vaccine Type Date Status Note Provider Nam e and Address Organization Details Recorded Time pneumococcal polysaccharide PPV23 1 completed Not Available [facility] 11/28/2022 02:53:20 influenza, unspecified formulation 1 completed Not Available [facility] 11/28/2022 02:53:20 COVID-19, mRNA, LNP-S, PF, 30 mcg/0.3 mL dose 1 completed Not Available [facility] 11/28/2022 02:53:20 COVID-19, mRNA, LNP-S, PF, 30 mcg/0.3 mL dose 1 completed Not Available [facility] 11/28/2022 02:53:20 Influenza, split virus, quadrivalent, preservative 0 completed Not Available [facility] 11/28/2022 02:53:20 pneumococcal polysaccharide PPV23 9 completed Not Available [facility] 11/28/2022 02:53:20 Past Encounters Encounter ID Performer Location Encounter Start Date Encounter Closed Date Diagnosis/Indication Diagnosis SNOMED-CT Code Diagnosis ICD10 Code Diagnosis Note [id number] [facility] [address] [place] [address] 12/21/2020 00:00:00 12/21/2020 14:06:32 [id number] [facility] [address] [place] [address] 03/23/2021 00:00:00 03/23/2021 12:51:47 [id number] [facility] [address] [place] [address] 05/23/2021 00:00:00 05/23/2021 13:24:52 [id number] [facility] [address] [place] [address] 08/22/2021 00:00:00 08/22/2021 14:17:37 [id number] [facility] [address] [place] [address] 10/23/2021 00:00:00 10/23/2021 14:07:33 [id number] [facility] [address] [place] [address] 12/20/2021 00:00:00 12/20/2021 13:39:21 [id number] [facility] [address] [place] [address] 03/06/2022 00:00:00 03/06/2022 15:18:59 [id number] [facility] [address] [place] [address] 04/17/2022 00:00:00 04/17/2022 12:51:01 [id number] [facility] [address] [place] [address] 08/06/2022 00:00:00 08/06/2022 14:06:59 [id number] NATALYA Zapata [facility] [address] [place] [address] 12/25/2022 09:48:09 12/25/2022 12:44:44 Nicotine dependence 07748704 Z87.891 Smoking cessation counseling and techniques reviewed at length. Literature reviewed.A void triggers, support groups.Dis traction techniques Greater than 3 but less than 10 minutes spent discussing cessation. Declines NRT.Discus sed Rx options if needed in the future.Due for LDCT in December, ordered today Dependence on supplemental oxygen 2862128780 07 Z99.81 3 liters at night - KRYSTAL WNL 01/2022I personally walked her in the office today - ordered aboveShe required RA at rest and 2 liters with activityDi scussed compliant useDiscuss ed the risks of hypoxia, including Severe chr onic obstructive pulmonary disease 686761214 J44.9 PFT 05/10/20 with severe obstructio n.FEV1:FVC 49%. FEV1 35%.TLC 137%, RV 252, DLCO 43.Needs repeat, she is unsure if she can make it through this testing, declines at this timeAlso declines PRComplian t with azithromyc in three times weeklyCont [facility] 4 puffs dailyI have had a detailed conversati on again about frequency, use and technique. She is aware to rinse and spit after useContinu e rescue MDI PRNDiscuss ed reportable signs and symptomsSi x minute walk testing today in office - oxygen ordered at 2 liters with all activity - she should not use pulsed doseRTC in 2-3 months, PRN for concerns Dyspnea on exertion 6084 5006 R06.09 SevereOxyg en testing as aboveHisto plasma, blastomyce s, ALPHA 1, HP panelRAST and IGE normalIGGs with subclass 2 low Chronic cough 77834713 R 05.3 CT chest with no nodule, mass, or enlarged lymph nodes.No signs of granulomas Quantifero n GOLD negativeSe sahil emphysemaS he must quit smoking [id number] Vaishnavi Morse, [facility] [address] [place] [address] 02/05/2023 10:50:46 02/06/2023 08:26:56 Severe chronic obstructive pulmonary disease 332523162 J44.9 PFT 05/10/20 with severe obstructio n.FEV1:FVC 49%. FEV1 35%.TLC 137%, RV 252, DLCO 43.Needs repeat, she is unsure if she can make it through this testing, continues to decline repeatAlso declines PRComplian t with azithromyc in three times weeklyStar t DalirespCo ntinue Deysiztri 4 puffs dailyShe is aware to rinse and spit after useContinu e rescue MDI PRNDiscuss ed reportable signs and symptomsSh e can not tolerate the size of her portable oxygenOrde r today for battery operated concentrat or, she is aware to inhale through her nose to triggerSta rt DalirespDi scussed SE - last PFT normalRTC in 4 months, PRN for concerns Dependence on supplemental oxygen 9048437354 07 Z99.81 3 liters at night - KRYSTAL WNL he required RA at rest and 2 liters with activity on walk testingDis cussed compliant useDiscuss ed the risks of hypoxia, including Dyspnea on exertion 6084 5006 R06.09 Severe, improved with oxygenDIsc ussed 100% compliant useHistopl asma, blastomyce s, ALPHA 1, HP panel all normalRAST and IGE normalIGGs with subclass 2 low Chronic cough 81103819 R 05.3 CT chest with no nodule, mass, or enlarged lymph nodes.No signs of granulomas Quantifero n GOLD negativeSe sahil emphysemaS he must quit smoking Nicotine dependence 5629 4008 Z87.891 Smoking cessation counseling and techniques reviewed at length. Literature reviewed.A void triggers, support groups.Dis traction techniques Greater than 3 but less than 10 minutes spent discussing cessation. Declines NRT.Discus sed Rx options if needed in the future.LDC T 01/10/23 with no nodule, mass or enlarged lymph nodes [id number] Vaishnavi Morse, [facility] [address] [place] [address] 03/26/2023 10:00:57 03/26/2023 10:39:27 Severe chronic obstructive pulmonary disease 197539930 J44.9 PFT 05/10/20 with severe obstructio n.FEV1:FVC 49%. FEV1 35%.TLC 137%, RV 252, DLCO 43.Continu es to decline repeat, also declines PRComplian t with azithromyc in three times weeklyStop Daliresp, she does not want to continue thisContin ue Breztri 4 puffs dailyShe is aware to rinse and spit after useContinu e rescue MDI PRNDiscuss ed reportable signs and symptomsDi scussed SE - last PFT normalPred nisone 40 mg x5 days, she will call if no improvemen tRTC in 4 months, PRN for concerns [id number] Vaishnavi Morse, [employer] [place] [address] [place] [address] 07/15/2023 10:21:57 07/15/2023 11:04:16 Severe chronic obstructive pulmonary disease 360569687 J44.9 PFT 05/10/20 with severe obstructio n.FEV1:FVC 49%. FEV1 35%.TLC 137%, RV 252, DLCO 43.Continu es to decline repeat, also declines PRComplian t with azithromyc in three times weeklyDali resp tried and failedCont inue Breztri 4 puffs dailyShe is aware to rinse and spit after useContinu e rescue MDI PRNDiscuss ed reportable signs and symptomsAd vised vaccines this fall Acute exac erbation of chronic obstructive pulmonary disease 362863959 J44.1 Start levaquinPr ednisone taperDiscu ssed S/S that require emergent evaluation Long-term drug therapy 368374433 Z79.899 Prednisone 10 mg maintenanc e doseWe have discussed the risks multiple times, including infection, fracture/b reak, deathShe understand sStart Calcium/Vi tamin DFollow with PCM for bone density Dependence on supplemental oxygen 4702178445 07 Z99.81 3 liters at night - KRYSTAL WNL 2She required RA at rest and 2 liters with activity on walk testingDis cussed compliant useShe has good use and clinical benefitDis cussed the risks of hypoxia, including Dyspnea on exertion 6084 5006 R06.09 Severe, improved with oxygenDisc ussed 100% compliant useHistopl asma, blastomyce s, ALPHA 1, HP panel all normalRAST and IGE normalIGGs with subclass 2 low Chronic cough 02547053 R 05.3 CT chest 12/2022 with no nodule, mass, or enlarged lymph nodes.No signs of granulomas Quantifero n GOLD negativeSe sahil emphysemaS he must quit smoking Nicotine dependence [id number] Smoking cessation counseling and techniques reviewed at length. Literature reviewed.A void triggers, support groups.Dis traction techniques Greater than 3 but less than 10 minutes spent discussing cessation. Declines NRT.Discus sed Rx options if needed in the future.LDC T 01/10/23 with no nodule, mass or enlarged lymph nodesRepea t 12/2023 Health Concerns Section Related Observation LastModified by Organization Detai ls LastModified Time None Recorded Concern Status LastModified by Organization Details LastModified Time None Recorded Advance Directives Directive None Recorded Payers Encounter Date Sequence Insurance Name Policy Number Policy Alvarado Covered Member ID Alvarado Member ID Guarantor Name 12/25/2022 1 [place] Flora Tyrone DialloKortney-Br ewer [id number] Flora Kortney Rosas 12/25/2022 2 [employer] - MEDICARE SELECT - PLAN F (MEDICARE SUPPLEMENT) Flora Kortney Rosas [id number] Flora Kortney Rosas 02/05/2023 1 [place] Flora Tyrone Kortney-Br ewer [id number] Flora Kortney Rosas 02/05/2023 2 [employer] - MEDICARE SELECT - PLAN F (MEDICARE SUPPLEMENT) Flora Kortney Rosas [id number] Flora Kortney Rosas 03/26/2023 1 [place] Flora B Kortney-Br ewer [id number] Flora Kortney Rosas 03/26/2023 2 [employer] - MEDICARE SELECT - PLAN F (MEDICARE SUPPLEMENT) Flora Kortney Rosas [id number] Folra Kortney Rosas 07/15/2023 1 [place] Flora Tyrone Kortney-Br ewer [id number] Flora Kortney Rosas 07/15/2023 2 [employer] - MEDICARE SELECT - PLAN F (MEDICARE SUPPLEMENT) Flora Kortney Rosas [id number] Florajorge Jower Notes Date Note Type Note Provider Name and Address Organization Details Recorded Time 3 text/html Flora presents today to follow up on advanced COPD, cough, dyspnea, nicotine dependence, referralsCherrie is using Breztri 4 puffs per day.She is splitting these up in to four single puffs throughout the day with albuterol in between - tells me that she takes her last Breztri dose of the day around 1830 and does not take another dose until she wakes in the morning around 0830 .Continues to report severe shortness of breath with most activity.She can not dress or bathe without dyspnea.She can not walk her dog more than 20-30 feet without shortness of breath.Reports low self monitored oxygen levels at home - as low as 80% after activity.Cough is intermittently persistent - not increased from baselineDenies hemoptysis and chest tightnessEndorses wheezingShe is not waking at night R/T respiratory symptoms but tells me when she wakes in the morning she must immediately use albuterolCompliant with azithromycin 3x weekly, dermatology determined this was not the cause of her rash - biopsy showed eczemaCompliant with oxygen at night - 3 litersShe has good use and benefitShe has not completed six minute walk testing,Continues to smoke about 3-4 per week, has cut down over the last monthHas not had an exacerbation requiring steroids or antibiotics and does not feel ill today Vaishnavi Morse, [facility]- [address], [facility] [address], [place], [address], [facility] 12/25/2022 11:37:04 3 text/html Flora presents today to follow up on advanced COPD, cough, dyspnea, nicotine dependence, referralsCherrie is using Breztri 4 puffs per day, spaced through out the dayShe has adjusted her times of dosing and continues to use albuterol in betweenReports that she has good and bad days.Feels like she can notice improvement from Azithromycin at times but continues to report shortness of breath with most activity.Dyspnea is improved with oxygenHer portable concentrator is large and on wheels, she can not maneuver this easily and has not brought it with her today.Denies hemoptysis and chest tightnessEndorses wheezingShe is not waking at night R/T respiratory symptoms but tells me when she wakes in the morning she must immediately use albuterolCompliant with oxygen at night - 3 litersSquinton has good use and benefitContinues to smoke about 3-4 per week,she can not smoke a whole cigarette at onceCherrie is interested in Daliresp Vaishnavi Mini, [facility] [address], [place], [address], [employer] 02/05/2023 20:21:43 3 text/html Flora presents today to follow up on new medications advanced COPD, cough, dyspnea, nicotine dependenceCherrie is using Breztri 4 puffs per day, spaced through out the dayTook Daliresp for 2 weeks, reports that her breathing was worseStopped taking this for a week, breathing was no better no worseTook another 2 weeks of this and decided to try one of the 500mg pillsReports that she couldn't sleep, hands shaky, nausea,unable to cough up mucousDyspnea is improved with oxygenDenies hemoptysis and chest tightnessEndorses wheezing intermittentlyShe was outside this weekend in the heat watering her plants and tells me she has had increase in shortness of breath Vaishnavi Morse, [facility] [address], [address], [place], [address], [employer] 03/26/2023 14:05:04 3 text/html Flora presents today to follow up on advanced COPD, cough, dyspnea, nicotine dependence, referralsShanu is using Breztri 4 puffs per day, spaced through out the dayShe has adjusted her times of dosing and continues to use albuterol in between - this has provided the best clinical benefit.Despite this she can not walk from her living room to her kitchen without dyspnea.Has dyspnea with all activity.Reports that she has good and bad days, unsure if there are any particular triggersHas had increase in cough and mucous productionContinues Azithromycin compliantlyDyspnea is improved with oxygenDenies hemoptysis and chest tightnessEndorses wheezing, worse in the last weekWhen she wakes in the morning she must immediately use albuterol - this is unchangedCompliant with oxygen at night - 3 litersShe has good use and benefitContinues to smoke about 3-4 per week,she can not smoke a whole cigarette at onceReturned NIV and stopped Daliresp Vaishnavi Morse, [facility] [address], [facility] [address], [place], [address], [place] [facility] 07/15/2023 14:27:45 OBGyn Episode No OBEpisode recorded.
[2024-11-05] MEDS: SODIUM CHLORIDE 0.9% IV 1,000 ML 999 ML IV CONT ×2 (12:08→14:41)
[2024-11-05] MEDS: MORPHINE SULFATE (*CRX) 4 MG/ML INJ IV PUSH (12:09)
[2024-11-05] MEDS: ONDANSETRON INJ 4 MG/2 ML VIAL IV PUSH (12:09)
[2024-11-05] MEDS: FAMOTIDINE 20 MG/2 ML VIAL IV PUSH (12:09)
[2024-11-05 12:18] LABS: Basophils Absolute Auto 0.05 K/mm3 (0.00-0.10); Basophils Percent Auto 0.4 % (0.0-1.0); Eosinophils Absolute Auto 0.04 K/mm3 (0.02-0.50); Eosinophils Percent Auto 0.3 % (1.0-6.0); Hematocrit 33.3 % (35.0-42.0); Hemoglobin 11.1 g/dL (11.7-13.8); Immature Granulocyte Absolute 0.27 K/mm3 (0.00-0.00); Lymphocytes Absolute Auto 0.48 K/mm3 (1.10-4.50); Lymphocytes Percent Auto 3.5 % (18.0-42.0); Mean Corpuscular HGB Conc 33.3 g/dL (32-36); Mean Corpuscular Hemoglobin 31.7 pg (27.0-31.0); Mean Corpuscular Volume 95.1 fL (78.0-102.0); Mean Platelet Volume 9.3 fl (9.2-11.8); Monocytes Absolute Auto 1.28 K/mm3 (0.10-0.90); Monocytes Percent Auto 9.4 % (2.0-11.0); Neutrophils Absolute Auto 11.46 K/mm3 (1.70-7.20); Neutrophils Percent Auto 84.4 % (50.0-70.0); Platelet Count Result 311 K/mm3 (150-420); Red Cell Distribution Width 12.7 % (11.6-14.4); White Blood Count 13.6 K/mm3 (4.8-10.8)
[2024-11-05 12:37] LABS: Alanine Aminotransferase 28 U/L (14-59); Alkaline Phosphatase 65 U/L (46-116); Anion Gap 10 mmol/L (4-12); Aspartate Amino Transferase 23 U/L (15-37); Bilirubin,Total 1.2 mg/dL (0.00-1.00); Blood Urea Nitrogen 17 mg/dL (7-18); Calcium 9.3 mg/dL (8.5-10.1); Carbon Dioxide 31 mmol/L (21-32); Chloride 88 mmol/L (98-108); Estimated CRCL calculation 53 ml/min; Estimated Glomerular Filt Rate > 60; Glucose 72 mg/dL (70-99); Lactic Acid Reflex 0.9 mmol/L (0.4-2.0); Lipase 174 U/L (16-77); Osmolality Calculated 268 mOsm/kg (285-295); Potassium 4.2 mmol/L (3.5-5.1); Sodium 129 mmol/L (136-145); Total Protein 6.7 g/dL (6.4-8.2); Troponin I 4.7 ng/L (0.00-60.4)
[2024-11-05 12:46] LABS: Partial Thromboplastin Time 27.3 Sec (23.9-30.70)
[2024-11-05 13:02] LABS: SARS-CoV-2 RNA PCR Negative (Negative)
[2024-11-05 13:08] LABS: Influenza A QL RT-PCR Negative (Negative); Influenza B QL RT-PCR Negative (Negative); RSV RNA, RT-PCR Negative (Negative)
--- NOTE | 2024-11-05 14:32 | ED_ITS ---
HPI - Abdominal Pain General Chief Complaint: Abdominal Pain Stated Complaint: abd pain Time Seen by Provider: 11/05/24 11:47 Source: patient and EMS Mode of arrival: ambulatory Limitations: no limitations History of Present Illness HPI narrative: This is a 64-year-old female presents with abdominal pain for the last 3 days intensifying over the last couple of hours and presents via EMS diffuse abdominal pain with some nausea no vomiting her vitals are stable. The patient has a history of COPD and hypothyroidism. Currently there is no fever chills no shortness of breath no chest pain. MD elicited complaint: abdominal pain Onset (ago): day(s) Pain Consistency: constant Location: diffuse Severity: severe Pain scale (0-10): 10 Quality: aching and fullness Related Data Home Medications ?Medication ?Instructions ?Recorded ?Confirmed ?Last Taken ?Type levothyroxine 75 mcg capsule 75 mcg PO DAILY 01/17/22 09/18/24 Unknown History ensifentrine 3 mg/2.5 mL 2.5 ml inhalation QAM AND QPM 09/18/24 09/18/24 Unknown History suspension for nebulization (Ohtuvayre) Allergies Allergy/AdvReac Type Severity Reaction Status Date / Time Penicillins Allergy Intermediate RASH/ HIVES Verified 11/05/24 12:24 Review of Systems 2 Review of Systems: All systems reviewed & are unremarkable except as noted in HPI and below PMFSH Past Medical History Medical History Carpal tunnel syndrome Thyroid disorder Headache COPD (chronic obstructive pulmonary disease) Arthritis Anxiety Surgical History Surgical History H/O knee surgery Family History Family History Father , Throat Cancer Throat cancer Heart disease Thyroid disorder Mother COPD (chronic obstructive pulmonary disease) Sibling Breast cancer Social History Social History Smoking packs per day: 0.25 Smoking cigarettes per day: 5.0 Years smoked: 40 Smoking pack-years: 10.00 Smoking status: Current some day smoker Second hand tobacco smoke exposure: Yes Smoking end date: 07/31/23 Alcohol intake: never Substance use: current Substance use type: marijuana Living arrangements: alone Occupation/Education: unemployed 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 Exam 2 Const: General: no acute distress and ill appearing Nutritional Appearance: thin Orientation/consciousness: patient oriented x3 Limitations: no limitations HENMT: Head: normal to inspection Neck: Neck: normal visual inspection Chest: Chest palpation & inspection: normal inspection of the chest Resp: Effort & Inspection: normal respiratory effort Auscultation: clear to auscultation bilaterally Cardio: Rate: regular rate Rhythm: regular rhythm GI: GI Palp: Yes Tenderness to palpation present (GI) and Yes Guarding due to palpation present (GI) Auscultation: normal bowel sounds : General: Yes bladder normal to palpation Urinary Catheter: Urinary Catheter: patent and draining Back/Spine/Pelvis: Back: no CVA tenderness Skin: General skin exam: normal color Rashes: no rashes Wounds: no wounds Neuro: General: patient oriented x3, moves all extremities and no meningeal signs Extrem: General: normal to inspection Course Course Emergency Course: Patient had a CT scan performed which shows small-bowel obstruction with some large amount of fluid collection consistent with bowel perforation. Patient has a lactic acid level of 0.9 with a lipase of 174 serum sodium was 129 with a white count of 13.6. Patient received 2L of normal saline, 4mg of morphine and an additional 2mg of morphine. The patient received Zofran IV. Started on IV Flagyl and IV Levaquin. Have an accepting physician / surgery at [facility] that accepted the patient. Vital Signs Vital signs: Vital Signs Temperature 36.9 C 11/05/24 11:50 Pulse Rate 80 11/05/24 11:50 Respiratory Rate 24 H 11/05/24 11:50 Blood Pressure 120/81 11/05/24 11:50 Pulse Oximetry 100 11/05/24 11:50 Oxygen Delivery Nasal Cannula 11/05/24 11:50 Oxygen Flow Rate 2 11/05/24 11:50 Temperature 36.9 C 11/05/24 11:50 Pulse Rate 84 11/05/24 14:16 Respiratory Rate 20 11/05/24 14:16 Blood Pressure 106/88 11/05/24 14:15 Pulse Oximetry 98 11/05/24 14:16 Oxygen Delivery Room Air 11/05/24 14:16 Oxygen Flow Rate 2 11/05/24 11:50 MDM - Abdominal Pain Lab Data 11/05/24 12:08 11/05/24 12:08 Labs: Lab Results 11/05/24 Range/Units 12:08 WBC 13.6 H (4.8-10.8) K/mm3 RBC 3.50 L (4.20-5.40) M/mm3 Hgb 11.1 L (11.7-13.8) g/dL Hct 33.3 L (35.0-42.0) % MCV 95.1 (78.0-102.0) fL MCH 31.7 H (27.0-31.0) pg MCHC 33.3 (32-36) g/dL RDW 12.7 (11.6-14.4) % Plt Count 311 (150-420) K/mm3 MPV 9.3 (9.2-11.8) fl Immature Gran % (Auto) 2.0 H (0.0-0.0) % Neut % (Auto) 84.4 H (50.0-70.0) % Lymph % (Auto) 3.5 L (18.0-42.0) % Phelps % (Auto) 9.4 (2.0-11.0) % Eos % (Auto) 0.3 L (1.0-6.0) % Baso % (Auto) 0.4 (0.0-1.0) % Lymph # (Auto) 0.48 L (1.10-4.50) K/mm3 Phelps # (Auto) 1.28 H (0.10-0.90) K/mm3 Eos # (Auto) 0.04 (0.02-0.50) K/mm3 Baso # (Auto) 0.05 (0.00-0.10) K/mm3 Abs Immat Gran (auto) 0.27 H (0.00-0.00) K/mm3 Absolute Neuts (auto) 11.46 H (1.70-7.20) K/mm3 Absolute Nucleated RBC 0.00 (0.00-0.00) K/mm3 Nucleated RBC % 0.0 (0-0.0) % PT 11.0 (9.50-12.1) Seconds INR 1.0 APTT 27.3 (23.9-30.70) Sec Sodium 129 L (136-145) mmol/L Potassium 4.2 (3.5-5.1) mmol/L Chloride 88 L (98-108) mmol/L Carbon Dioxide 31 (21-32) mmol/L Anion Gap 10 (4-12) mmol/L BUN 17 (7-18) mg/dL Creatinine 0.63 (0.55-1.02) mg/dL Estim Creat Clear Calc 53 ml/min Estimated GFR > 60 (59 - ) Glucose 72 (70-99) mg/dL Calculated Osmolality 268 L (285-295) mOsm/kg Lactic Acid 0.9 (0.4-2.0) mmol/L Calcium 9.3 (8.5-10.1) mg/dL Total Bilirubin 1.2 H (0.00-1.00) mg/dL AST 23 (15-37) U/L ALT 28 (14-59) U/L Alkaline Phosphatase 65 (46-116) U/L Troponin I 4.7 (0.00-60.4) ng/L Total Protein 6.7 (6.4-8.2) g/dL Albumin 3.0 L (3.4-5.0) g/dL Lipase 174 H (16-77) U/L Influenza A (RT-PCR) Negative (Negative) Influenza B (RT-PCR) Negative (Negative) RSV (RT-PCR) Negative (Negative) SARS-CoV-2 RNA (RT-PCR) Negative (Negative) Imaging Data Radiologist's impression: ITS Impressions Abdomen/Pelvis CT 11/05/24 13:26 IMPRESSION: 1. Small bowel obstruction with large loculated gas and fluid collection in the deep pelvis consistent with a bowel perforation. There is unusual configuration of the gas loculated within the collection and could not exclude that the at least some of the gas and fluid within the fluid collection is located within ischemic loops of bowel without discernible mural enhancement. Dr. Carter discussed these findings with Dr. Thomas at 1:40 PM. 2. Mild right hydroureteronephrosis and minimal left hydronephrosis with transition point in the right ureter alongside the fluid collection suggesting this could be related to extrinsic compression. Chest X-Ray 11/05/24 13:28 IMPRESSION: 1. Emphysema. Critical Care Time Critical Care Time Critical Care Time: No Discharge Plan Discharge Clinical Impression: Complete obstruction of small intestine, Bowel perforation Patient Disposition: Acute Care Hospital Condition: Stable Patient Language: Solomon Islander Prescriptions: No Action albuterol sulfate 1.25 mg/3 mL solution for nebulization 1.25 mg inhalation Q4H Qty: 90 0RF levothyroxine 75 mcg capsule 75 mcg PO DAILY (DME) inhalational spacing device Spacer See Rx Instructions .ROUTE .MEDSUPPLY Qty: 1 0RF Rx Instructions: As directed buspirone 5 mg tablet 5 mg PO BID Qty: 60 5RF Ohtuvayre 3 mg/2.5 mL suspension for nebulization 2.5 ml inhalation QAM AND QPM albuterol sulfate 90 mcg/actuation HFA aerosol inhaler 2 inh INHALATION Q4-6H PRN (Reason: shortness of breath or wheezing) Qty: 8.5 5RF prednisone 10 mg tablet 10 mg PO DIRECTED Qty: 34 0RF Rx Instructions: Take 4 tablets by mouth daily for 4 days, then 3 tablets for 3 days, 2 tablets for 3 days, 1 tablet for 3 days Breztri Aerosphere 160-9-4.8 mcg/actuation HFA aerosol inhaler 2 inh INHALATION BID Qty: 10.7 11RF Rx Instructions: Rinse and spit. Use with spacer. azithromycin 500 mg tablet 500 mg PO QMWF 30 Days Qty: 13 5RF Follow-up/Referrals: Patrick Jama MD [Primary Care Provider] - Time of Disposition: 14:38
[2024-11-05] MEDS: metroNIDAZOLE 500 MG/ISO 100ML 500 MG/100 ML BAG 100 MG IVPB (14:39)
[2024-11-05] MEDS: MORPHINE SULFATE (*CRX) 2 MG/ML INJ IV PUSH (14:41)
[2024-11-05] MEDS: levoFLOXacin 500 MG/D5W 100 ML 500 MG/100 ML BAG 100 MG IVPB (15:34)
[2024-11-05 16:02] LABS: Add Urine Microscopic? YES; Appearance Urine Clear (Clear); Bilirubin Urine 1+ (Negative); Blood Urine Trace-intact (Negative); Color Urine Yellow (Yellow); Glucose Urine UA Negative (Negative); Ketones Urine 2+ (Negative); Leukocyte Esterase Ur Negative LEU/UL (Negative); Nitrate Urine Negative (Negative); Protein Urine Trace (Negative); Specific Grav Ur <= 1.005 (1.010-1.020); pH Urine 6.5 (5.0-8.0)
[2024-11-05 16:25] LABS: Bacteria Urine 1+ /hpf; RBC Urine 0-2 /hpf (0-2); Squamous Epithelial Cell Urine Rare /hpf (Few); WBC Urine 0-3 /hpf (0-3)
--- NOTE | 2024-11-07 13:43 | PC.NURSE ---
preliminary blood culture reviewed, no growth to date.
--- NOTE | 2024-11-11 12:47 | PC.NURSE ---
FINAL BLOOD CULTURE RESULTS X2: NO GROWTH AFTER 5 DAYS.
== END 2024-11-05 17:29 | disposition short-term general hospital (02) ==
PROVIDERS: Emergency Provider Emergency Medicine; PCP Internal Medicine
DX: K56.609 Unspecified intestinal obstruction, unspecified as to partial versus complete obstruction (principal); K63.1 Perforation of intestine (nontraumatic); J44.9 Chronic obstructive pulmonary disease, unspecified; E03.9 Hypothyroidism, unspecified; F17.210 Nicotine dependence, cigarettes, uncomplicated; Z20.822 Contact with and (suspected) exposure to COVID-19
CPT/HCPCS: 36415; 71045; 74177; 80053; 81001; 83605; 83690; 84484; 85025; 85610; 85730; 87040; 87637; 93005; 96361; 96365; 96375; 96376; 99285; J1836; J1956; J2270; J2405; J7030; Q9967